=== PATIENT | male | born 1930 | race African-American/Black ===

== ENCOUNTER 2016-07-28 08:20 | Emergency (ER) | payer OTHER ==
[2016-07-28 09:02] VITALS: BMI 23.6
[2016-07-28 09:58] LABS: PH,URINE 6.5 (5.0-8.0); URINE APPEARANCE CLEAR; URINE BILIRUBIN 2+ (NEGATIVE); URINE COLOR DK. RED; URINE GLUCOSE (UA) NEGATIVE (NEGATIVE); URINE KETONE TRACE (NEGATIVE); URINE UROBILINOGEN 2.0 E.U/dl E.U./dl (0.2-1.0)
[2016-07-28 10:02] LABS: BASOPHIL 0.9 % (0-2.0); EOSINOPHIL 0.6 % (0-4.5); MCH 26.8 pg (25.7-33.7); MCHC 32.4 g/dl (32.0-35.9); MEAN CELL VOLUME 82.6 fl (80-96); MEAN PLT VOLUME 8.7 fl (7.5-11.1); NEUTROPHILS 63.4 % (42.8-82.8); PLATELET COUNT 204 K/MM3 (134-434); RDW 18.4 % (11.9-15.9); WHITE BLOOD COUNT 6.1 K/mm3 (4.0-10.0)
--- NOTE | 2016-07-28 10:07 | PDOC ---
History of Present Illness - General Chief Complaint: Penile Drainage Stated Complaint: FALL/BLEEDING FROM PENIS Time Seen by Provider: 07/28/16 09:05 - History of Present Illness Initial Comments: 07/28/16 09:58 CHIEF COMPLAINT: fall/hematuria HISTORY OF PRESENT ILLNESS: 86 yo M with hx of dementia, HTN, NIDDM, CAD, [place], CVA 2, BPH, prostate cancer (undergoing treatment with urologist MD Oliveira) presents to ED with hematuria. Patient is poor historian, but daughter is at bedside. Daughter states that patient lives alone and she was unable to reach him last night when she called him to tell him that the lab was coming to tests this morning. She states he "normally goes to bed early so I thought maybe he went to bed, but when I called him this morning I couldn't reach him. I went to go see what was going on and when I got his apartment he was lying on the floor, and everything was in disarray. I think he might have fallen but he will never admit to falling." Daughter also reports that he had "a procedure done a couple months ago and ever since then he has had some bleeding in his urine sometimes." Patient has no complaints of pain at this time. No recent travel or sick contacts. PAST MEDICAL HISTORY: as per HPI FAMILY HISTORY: Denies SOCIAL HISTORY: Lives at home alone. Denies tobacco, alcohol, illicit drug use. SURGICAL HISTORY: hip replacement ALLERGIES: No known drug allergies REVIEW OF SYSTEMS - patient denies any pain at this time, otherwise unreliable history PHYSICAL EXAM General Appearance: Well-appearing, appropriately dressed. No apparent distress , no intoxication. HEENT: EOMI, PERRLA, normal ENT inspection, normal voice, TMs normal, pharynx normal. No conjunctival pallor. No photophobia, scleral icterus. Neck: Supple. Trachea midline. No tenderness, rigidity, carotid bruit, stridor , lymphadenopathy, or thyromegaly. Respiratory/Chest: Lungs CTAB. No shortness of breath, chest tenderness, respiratory distress, accessory muscle use. No crackles, rales, rhonchi, stridor , wheezing, dullness Cardiovascular: RRR. S1, S2. No JVD, murmur, bradycardia, tachycardia. Vascular Pulses: Dorsalis-Pedis (R): 2+, Dorsalis-Pedis (L): 2+ Gastrointestinal/Abdominal: Normal bowel sounds. Abdomen soft, non-distended. No tenderness or rebound tenderness. No organomegaly, pulsatile mass, guarding , hernia, hepatomegaly, splenomegaly. Genitourinary: Jamey red blood to urine. Lymphatic: No adenopathy, tenderness. Musculoskeletal/Extremities: Normal inspection. FROM of all extremities, normal capillary refill. Pelvis Stable. No CVA tenderness. No tenderness to extremities, pedal edema, swelling, erythema or deformity. Integumentary: Appropriate color, dry, warm. No cyanosis, erythema, jaundice or rash Neurologic: jitney driver II-XII intact. Fully oriented, alert. Appropriate mood/affect. Motor strength 5/5. No appreciable EOM palsy, facial droop or sensory deficit. Past History - Past Medical History Allergies/Adverse Reactions: Allergies Allergy/AdvReac Type Severity Reaction Status Date / Time No Known Drug Allergies Allergy Verified 07/28/16 08:57 Home Medications: Ambulatory Orders Aspirin [ASA -] 81 mg PO DAILY 07/28/16 Atorvastatin Ca [Lipitor] 40 mg PO HS 07/28/16 Carvedilol [Coreg -] 25 mg PO BID 07/28/16 Cholecalciferol (Vitamin D3) [Vitamin D3 -] 1,000 units PO DAILY 07/28/16 Ciprofloxacin HCl [Cipro] 500 mg PO BID #10 tablet 07/28/16 Dabigatran Etexilate Mesylate [Pradaxa -] 150 mg PO BID 07/28/16 Donepezil HCl 5 mg PO DAILY 07/28/16 Ferrous Sulfate 325 mg PO DAILY 07/28/16 Furosemide 20 mg PO DAILY 07/28/16 Nitroglycerin 0.4 mg SL ASDIR 07/28/16 Sitagliptin Phos/Metformin HCl [Janumet 50-1,000 mg Tablet] 1 each PO BID Anemia: No Asthma: No Cancer: Yes (PROSTATE CA) Cardiac Disorders: Yes ([place] 2014, CAD,A.FIB) CVA: Yes (STROKE X 2- 2006, 2012) COPD: No CHF: No Dementia: Yes Diabetes: Yes (NIDDM) GI Disorders: No Disorders: No HTN: Yes Hypercholesterolemia: No Liver Disease: No Seizures: No Thyroid Disease: No - Surgical History Orthopedic Surgery: Yes (HIP REPLACEMENT) - Psycho/Social/Smoking Cessation Hx Anxiety: No Suicidal Ideation: No Smoking History: Never smoked Have you smoked in the past 12 months: No Number of Cigarettes Smoked Daily: 0 Information on smoking cessation initiated: No Hx Alcohol Use: No Drug/Substance Use Hx: No Substance Use Type: None Hx Substance Use Treatment: No *Physical Exam - Vital Signs Last Vital Signs Temp Pulse Resp BP Pulse Ox 95.6 F L 74 18 109/90 100 07/28/16 08:57 07/28/16 08:57 07/28/16 08:57 07/28/16 08:57 07/28/16 08:57 ED Treatment Course - LABORATORY CBC & Chemistry Diagram: 07/28/16 09:50 07/28/16 09:50 Medical Decision Making - Medical Decision Making 07/28/16 11:07 86 yo M with hx of dementia, HTN, NIDDM, CAD, [place], CVA 2, BPH, prostate cancer (undergoing treatment with urologist MD Oliveira) presents to ED with hematuria. -CBC, CMP -UA, UCx (larsen catheter placed) -Head CT Head CT negative for acute pathology. Labs: UA positive for 865 WBC. Discussed case with covering urologist MD Emmett Oliveira. Per Dr. Oliveira, will order renal/pelvic US and discharge with close outpatient follow up with Dr. Sarah on Sunday. Will rx cipro for UTI. Pelvic/Renal US results: R renal cyst, no evidence of stones or hydronephrosis. discussed with radiologist MD Williamson. 07/28/16 14:26 *DC/Admit/Observation/Transfer Diagnosis at time of Disposition: Hematuria due to cystitis, Chronic UTI - Discharge Dispostion Disposition: HOME Condition at time of disposition: Stable Admit: No - Prescriptions Prescriptions: Ciprofloxacin HCl [Cipro] 500 mg PO BID #10 tablet - Referrals Referrals: Jered Poole [Primary Care Provider] - Aaliyah Sarah MD [Staff Physician] - - Patient Instructions Printed Discharge Instructions: DI for Hematuria, DI for Urinary Tract Infection (UTI) Additional Instructions: Please take medication as prescribed and complete the entire course of antibiotics. As discussed, you MUST follow up with Dr. Sarah on Sunday, anytime after 9 am. If you experience fever, nausea, vomiting, diarrhea, change in mental status, chest pain, shortness of breath, or any new or worsening symptoms, please return to the ER.
[2016-07-28 10:08] LABS: URINE BLOOD 3+ (NEGATIVE); URINE LEUK ESTERASE 2+ (NEGATIVE); URINE NITRITE POSITIVE (NEGATIVE); URINE PROTEIN 3+ (NEGATIVE)
[2016-07-28 10:10] LABS: URINE RBC 3435 /hpf (0-3); URINE WBC 865 /hpf (3-5); YEAST MANY
[2016-07-28 10:18] LABS: INR 2.3 (0.82-1.09); PROTHROMBIN TIME (PATIENT) 25.7 SEC (9.98-11.88)
[2016-07-28 10:56] LABS: ALBUMIN 2.1 g/dl (3.4-5.0); ANION GAP 11 (8-16); CALCIUM 8.6 mg/dL (8.5-10.1); CO2 26 mmol/L (21-32); COCKROFT - GAULT 76.31; CREATININE 0.7 mg/dL (0.7-1.3); GLUCOSE,RANDOM 99 mg/dL (74-106); SGPT/ALT 25 U/L (12-78)
[2016-07-28 10:58] LABS: ALK PHOS 86 U/L (45-117); BILIRUBIN,TOTAL 0.6 mg/dL (0.2-1.0); TOT PROT 7.2 g/dl (6.4-8.2)
[2016-07-28 10:59] LABS: SGOT/AST 48 U/L (15-37)
[2016-07-28] MEDS ORDERED: LEVOFLOXACIN 750 MG IVPB 150 ML IVPB ONE ×2 (11:05→11:26)
[2016-07-28 15:25] VITALS: BP 118/78; PULSE 76; TEMP 98
--- NOTE | 2016-07-29 18:36 | EKG ---
Test Reason : Blood Pressure : / mmHG Vent. Rate : 073 BPM Atrial Rate : 292 BPM P-R Int : 000 ms QRS Dur : 068 ms QT Int : 434 ms P-R-T Axes : 065 045 119 degrees QTc Int : 478 ms PROBABLE ATRIAL FLUTTER WITH 4:1 A-V CONDUCTION NONSPECIFIC ST AND T WAVE ABNORMALITY ABNORMAL ECG WHEN COMPARED WITH ECG OF 06-JAN-2010 22:04, VENT. RATE HAS DECREASED BY 37 BPM NONSPECIFIC T WAVE ABNORMALITY, WORSE IN LATERAL LEADS CLINICAL CORRELATION IS RECOMMENDED BASELINE ARTIFACT Confirmed by KARLA WATKINS, JALEEL ([id number]) on 07/29/2016 6:36:04 PM Referred By: Confirmed By:JALEEL ACOSTA MD
== END 2016-07-28 17:25 | disposition home or self-care (01) ==
LOC: JER 08:20
PROC: 3E0333Z Introduction of Anti-inflammatory into Peripheral Vein, Percutaneous Approach (ICD-10-PCS; principal; 2016-07-28)
PROC: 0T9B70Z Drainage of Bladder with Drainage Device, Via Natural or Artificial Opening (ICD-10-PCS; 2016-07-28)
DX: N30.21 Other chronic cystitis with hematuria (principal); I25.10 Atherosclerotic heart disease of native coronary artery without angina pectoris; I10 Essential (primary) hypertension; I25.2 Old myocardial infarction; I48.91 Unspecified atrial fibrillation; Z79.01 Long term (current) use of anticoagulants; E11.9 Type 2 diabetes mellitus without complications; Z79.84 Long term (current) use of oral hypoglycemic drugs; N40.0 Benign prostatic hyperplasia without lower urinary tract symptoms; C61 Malignant neoplasm of prostate; Z86.73 Personal history of transient ischemic attack (TIA), and cerebral infarction without residual deficits; F03.90 Unspecified dementia, unspecified severity, without behavioral disturbance, psychotic disturbance, mood disturbance, and anxiety
CPT/HCPCS: 36415; 51702; 70450-TC; 76775-TC; 76856-TC; 80053; 81003; 81015; 85025; 85610; 87086; 87186; 93005; 93010; 96365; 99283-25

== ENCOUNTER 2016-11-19 08:33 | Observation (INO) | payer OTHER ==
[2016-11-19 09:03] VITALS: BMI 22.1
--- NOTE | 2016-11-19 09:41 | PDOC ---
History of Present Illness - General Chief Complaint: Weakness Stated Complaint: WEAKNESS/DEHYDRATION Time Seen by Provider: 11/19/16 09:36 History Source: Patient Exam Limitations: Clinical Condition, Dementia - History of Present Illness Initial Comments: 11/19/16 12:54 86M with h/o dementia, HTN, NIDDM, CAD, [place], CVAx2 and prostate cancer, present to the ED after a syncopal episode. 3 days ago the patient collapsed trying to get up on his feet but was too weak. That fall was unwitnessed but without any apparent wounds. today after drinking some water, he was witnessed by his son rolling his eyes back and tilting his head back for 30 sec, regaining consciousness for 15min then another 10sec syncopal episode witnessed by firefighters who were called. The patient was then brought here by ems. 11/19/16 14:16 11/19/16 14:57 Past History - Past Medical History Allergies/Adverse Reactions: Allergies Allergy/AdvReac Type Severity Reaction Status Date / Time No Known Drug Allergies Allergy Verified 11/19/16 08:59 Home Medications: Ambulatory Orders Aspirin [ASA -] 81 mg PO DAILY 07/28/16 Atorvastatin Ca [Lipitor] 40 mg PO HS 07/28/16 Carvedilol [Coreg -] 25 mg PO BID 07/28/16 Cholecalciferol (Vitamin D3) [Vitamin D3 -] 1,000 units PO DAILY 07/28/16 Dabigatran Etexilate Mesylate [Pradaxa -] 150 mg PO BID 07/28/16 Donepezil HCl 5 mg PO DAILY 07/28/16 Ferrous Sulfate 325 mg PO BID 07/28/16 Furosemide 20 mg PO DAILY 07/28/16 Nitroglycerin 0.4 mg SL ASDIR 07/28/16 Sitagliptin Phos/Metformin HCl [Janumet 50-1,000 mg Tablet] 1 each PO BID Bicalutamide [Casodex] 50 mg PO DAILY 11/19/16 Docusate Sodium 300 mg PO HS 11/19/16 Gabapentin 100 mg PO HS 11/19/16 Ipratropium/Albuterol Sulfate [Iprat-Albut 0.5-3(2.5) mg/3 ml] 3 ml IH PRN PRN 11/19/16 Sitagliptin Phos/Metformin HCl [Janumet 50-500 mg Tablet] 1 each PO DAILY Anemia: No Asthma: No Cancer: Yes (PROSTATE CA) Cardiac Disorders: Yes ([place] 2013, CAD,A.FIB) CVA: Yes (STROKE X 2- 2006, 2012) COPD: No CHF: No Dementia: Yes Diabetes: Yes (NIDDM) GI Disorders: No Disorders: No HTN: Yes Hypercholesterolemia: No Liver Disease: No Seizures: No Thyroid Disease: No - Surgical History Orthopedic Surgery: Yes (HIP REPLACEMENT) - Psycho/Social/Smoking Cessation Hx Anxiety: No Suicidal Ideation: No Smoking History: Never smoked Have you smoked in the past 12 months: No Number of Cigarettes Smoked Daily: 0 Information on smoking cessation initiated: No Hx Alcohol Use: No Drug/Substance Use Hx: No Substance Use Type: None Hx Substance Use Treatment: No Review of Systems - Review of Systems Able to Perform ROS?: No (Dementia) *Physical Exam - Vital Signs Last Vital Signs Temp Pulse Resp BP Pulse Ox 98.8 F 50 L 18 148/63 99 11/19/16 09:32 11/19/16 08:35 11/19/16 08:35 11/19/16 08:35 11/19/16 08:35 - Physical Exam General Appearance: Yes: Nourished, Appropriately Dressed HEENT: positive: EOMI (arcus senilis), YENI Respiratory/Chest: positive: Lungs Clear, Normal Breath Sounds. negative: Chest Tender, Respiratory Distress Cardiovascular: positive: Bradycardia, Irregular Gastrointestinal/Abdominal: positive: Normal Bowel Sounds, Soft. negative: Tender Neurologic: positive: Normal Mood/Affect, Depressed Affect Heart Score/ECG Review - Age Age: >/= 65 - Risk Factors Risk Factors Heart Score: Yes Hx Hypercholesterolemia, Yes Hx Hypertension, Yes Hx Diabetes, Yes Positive family hx of cardiac disease ED Treatment Course - LABORATORY CBC & Chemistry Diagram: 11/19/16 10:00 11/19/16 10:00 Medical Decision Making - Medical Decision Making 11/19/16 14:31 86M with h/o dementia, HTN, NIDDM, CAD, [place], CVAx2 and prostate cancer comes to ED for evaluation of syncope. r/o cva, [place] CBC CMP negtive cardiac enzymes neg waiting for second set CT head negative. 11/19/16 17:37 UTI present. From previous Urine Culture, possible proteus mirabilis susceptible to Meropenem 11/19/16 17:[address] Rebollar[facility] [employer] who accepted the patient to telemetry *DC/Admit/Observation/Transfer Diagnosis at time of Disposition: UTI (urinary tract infection) - Discharge Dispostion Condition at time of disposition: Stable Admit: Yes - Referrals Referrals: Danuta Price MD [Staff Physician] - Jas Juares MD [Staff Physician] -
[2016-11-19 10:33] LABS: BASOPHIL 0.6 % (0-2.0); EOSINOPHIL 1.8 % (0-4.5); MCH 27.5 pg (25.7-33.7); MEAN PLT VOLUME 8.4 fl (7.5-11.1); NEUTROPHILS 72.2 % (42.8-82.8); PLATELET COUNT 179 K/MM3 (134-434); RDW 18.4 % (11.9-15.9); WHITE BLOOD COUNT 6.8 K/mm3 (4.0-10.0)
[2016-11-19 11:31] LABS: ALBUMIN 1.8 g/dl (3.4-5.0); ANION GAP 7 (8-16); BILIRUBIN,TOTAL 0.4 mg/dL (0.2-1.0); CALCIUM 7.9 mg/dL (8.5-10.1); CO2 25 mmol/L (21-32); CREATININE 0.8 mg/dL (0.7-1.3); GLUCOSE,RANDOM 126 mg/dL (74-106); SGOT/AST 22 U/L (15-37); SGPT/ALT 10 U/L (12-78); TOT PROT 6.6 g/dl (6.4-8.2)
[2016-11-19 11:33] LABS: ALK PHOS 89 U/L (45-117); CPK 32 IU/L (39-308); TROPONIN I 0.04 ng/ml (0.00-0.05)
[2016-11-19 15:05] LABS: URINE APPEARANCE CLEAR; URINE BILIRUBIN NEGATIVE (NEGATIVE); URINE BLOOD 3+ (NEGATIVE); URINE COLOR BROWN; URINE GLUCOSE (UA) NEGATIVE (NEGATIVE); URINE KETONE NEGATIVE (NEGATIVE)
[2016-11-19 15:06] LABS: URINE LEUK ESTERASE 2+ (NEGATIVE); URINE NITRITE POSITIVE (NEGATIVE); URINE PROTEIN 2+ (NEGATIVE)
[2016-11-19 15:09] LABS: URINE RBC 3982 /hpf (0-3); URINE WBC 918 /hpf (3-5); YEAST MANY
--- NOTE | 2016-11-19 15:19 | PDOC ---
Attending Attestation - Resident Resident Name: Malachi Ross - ED Attending Attestation I have performed the following: I have examined & evaluated the patient, The case was reviewed & discussed with the resident, I agree w/resident's findings & plan, Exceptions are as noted - HPI HPI: 11/19/16 16:23 2 syncopal events this morning, prior to arrival.... - Physicial Exam PE: 11/19/16 16:23 Awake, Alert, Cooperative, Benign - Medical Decision Making 11/19/16 16:24 Uti, Syncope 11/19/16 16:24 Will Admit to telemetry-
[2016-11-19] MEDS ORDERED: MEROPENEM 1 MG in DEXTROSE 5%-WATER - 100 ML IVPB ONE (16:02)
[2016-11-19] MEDS ORDERED: ACETAMINOPHEN 325 MG TABLET (FP) PO PRN (19:04)
[2016-11-19] MEDS ORDERED: PIPERACILLIN/TAZOB 3.375 GM/50 ML PRE-DOCKED IVPB ONE (19:45)
--- NOTE | 2016-11-19 19:55 | HP ---
Admitting History and Physical - Primary Care Physician PCP: Dereje Rodriguez - Admission Chief Complaint: syncope x 2 History of Present Illness: 86M with h/o dementia, HTN, NIDDM, CAD, [place], CVAx2 and prostate cancer, present to the ED after a syncopal episode. 3 days ago the patient collapsed trying to get up on his feet but was too weak. That fall was unwitnessed but without any apparent wounds. He was brought in to [facility] ER aftera witnessed fall by his son, while patient was drinking water. His eyes rolled back, tilting his head coming back to his baseline after 15 mins or so and then another syncopal episode for 10 seconds which was also witness by firefighters who initiated EMS. At the moment, patient was seen in the ED holding area, comfortable in bed, NAD , unable to remember any of the events asking to go home. History Source: Medical Record Limitations to Obtaining History: Dementia - Past Medical History SURGICAL ORDERLY: Yes: CVA (2006,12/2009), Dementia Cardiovascular: Yes: AFIB (aflutter), CAD, HTN, Hyperlipdemia, [place] (NSTEMI with left ventricular dysfunction-2014) Renal/: Yes: BPH, Cancer (Prostate Ca), Other (cystoscopy-2016,bladder stones- 2016,) Heme/Onc: Yes: Anemia, B12 Deficiency Musculoskeletal: Yes: Other (left hip fx) Additional Past Medical History: Glaucoma Left cataract extraction - Smoking History Smoking history: Never smoked Have you smoked in the past 12 months: No Aproximately how many cigarettes per day: 0 - Alcohol/Substance Use Hx Alcohol Use: No Home Medications - Allergies Allergies/Adverse Reactions: Allergies Allergy/AdvReac Type Severity Reaction Status Date / Time No Known Drug Allergies Allergy Verified 11/19/16 08:59 - Home Medications Home Medications: Ambulatory Orders Aspirin [ASA -] 81 mg PO DAILY 07/28/16 Atorvastatin Ca [Lipitor] 40 mg PO HS 07/28/16 Carvedilol [Coreg -] 25 mg PO BID 07/28/16 Cholecalciferol (Vitamin D3) [Vitamin D3 -] 1,000 units PO DAILY 07/28/16 Dabigatran Etexilate Mesylate [Pradaxa -] 150 mg PO BID 07/28/16 Donepezil HCl 5 mg PO DAILY 07/28/16 Ferrous Sulfate 325 mg PO BID 07/28/16 Furosemide 20 mg PO DAILY 07/28/16 Nitroglycerin 0.4 mg SL ASDIR 07/28/16 Sitagliptin Phos/Metformin HCl [Janumet 50-1,000 mg Tablet] 1 each PO BID Bicalutamide [Casodex] 50 mg PO DAILY 11/19/16 Docusate Sodium 300 mg PO HS 11/19/16 Gabapentin 100 mg PO HS 11/19/16 Ipratropium/Albuterol Sulfate [Iprat-Albut 0.5-3(2.5) mg/3 ml] 3 ml IH PRN PRN 11/19/16 Sitagliptin Phos/Metformin HCl [Janumet 50-500 mg Tablet] 1 each PO DAILY Family Disease History - Family Disease History Family Disease History: Other: Father (CVA), Mother (CVA), Brother (CVA), Son ( HEALTHY), Daughter (X 2- HEALTHY) Review of Systems - Review of Systems Constitutional: reports: No Symptoms Eyes: reports: No Symptoms HENT: reports: No Symptoms Neck: reports: No Symptoms Cardiovascular: reports: No Symptoms Respiratory: reports: No Symptoms Gastrointestinal: reports: No Symptoms Genitourinary: reports: No Symptoms Breasts: reports: No Symptoms Reported Musculoskeletal: reports: No Symptoms Integumentary: reports: No Symptoms Neurological: reports: No Symptoms Endocrine: reports: No Symptoms Hematology/Lymphatic: reports: No Symptoms Psychiatric: reports: No Symptoms Physical Examination Vital Signs: Vital Signs Temperature 98.2 F 11/19/16 18:27 Pulse Rate 56 L 11/19/16 18:27 Respiratory Rate 16 11/19/16 18:27 Blood Pressure 147/76 11/19/16 18:27 O2 Sat by Pulse Oximetry (%) 97 11/19/16 18:27 Constitutional: Yes: Well Nourished, No Distress, Calm Cardiovascular: Yes: Pulse Irregular, Murmur (LSB systolic grade II murmur) Respiratory: Yes: Regular Gastrointestinal: Yes: Normal Bowel Sounds Musculoskeletal: Yes: WNL Extremities: Yes: WNL Edema: No Peripheral Pulses WNL: Yes Neurological: Yes: Alert, Pre-Existing Deficit Psychiatric: Yes: Alert Imaging - Results Cat Scan: Report Reviewed (CT head negative) Problem List - Problems (1) UTI (urinary tract infection) Code(s): N39.0 - URINARY TRACT INFECTION, SITE NOT SPECIFIED (2) Syncopal episodes Code(s): R55 - SYNCOPE AND COLLAPSE (3) HTN (hypertension) Code(s): I10 - ESSENTIAL (PRIMARY) HYPERTENSION (4) Afib Code(s): I48.91 - UNSPECIFIED ATRIAL FIBRILLATION Qualifiers: Atrial fibrillation type: chronic Qualified Code(s): I48.2 - Chronic atrial fibrillation (5) Fall Assessment/Plan: -safety precautions Code(s): W19.XXXA - UNSPECIFIED FALL, INITIAL ENCOUNTER (6) Anemia Code(s): D64.9 - ANEMIA, UNSPECIFIED Qualifiers: Anemia type: iron deficiency Assessment/Plan UTI -UA postive for nitrites -merpenem given in the ER -zosyn Q8H -ID consult -UC pending afib-chronic -continue pradaxa -Cardiology consult Fall -he has fallen multiple times in the past -neurology consult -CT head negative -MRI without contrast -safety precaution Syncope -Echo -Carotid U/S -telemetry -Neurology and cardiology consult Anemia -on ferrous sulfate -iron profile -stool guaiac -monitor h/h HTN -controlled at this time
[2016-11-19] MEDS ORDERED: GABAPENTIN 100 MG CAPSULE (FP) ONE (21:51)
[2016-11-19] MEDS ORDERED: DOCUSATE SODIUM 100 MG CAPSULE (FP) PO ONE (21:55)
[2016-11-19] MEDS ORDERED: CARVEDILOL 12.5 MG TABLET (FP) ONE (21:56)
[2016-11-19] MEDS ORDERED: PIPERACILLIN/TAZOB 3.375 GM 50 ML IVPB ONE (21:57)
[2016-11-19] MEDS ORDERED: FERROUS SO4 325 MG TABLET (FP) ONE (21:58)
[2016-11-19] MEDS ORDERED: ATORVASTATIN CA 40 MG TABLET (FP) ONE (21:58)
[2016-11-19] MEDS: DOCUSATE SODIUM 100 MG CAPSULE (FP) PO SCH (22:00)
[2016-11-19] MEDS: GABAPENTIN 100 MG CAPSULE (FP) PO SCH (22:00)
[2016-11-19] MEDS: CARVEDILOL 25 MG TABLET (FP) PO SCH (22:00)
[2016-11-19] MEDS: INSULIN SLIDING SCALE (NOVOLOG) 1 VIAL SQ SCH (22:00)
[2016-11-19] MEDS ORDERED: ALBUTEROL SO4 2.5/IPRATROPIUM 0.5 INH SOL 3 ML VIAL.NEB. NEB PRN (22:00)
[2016-11-19] MEDS: ATORVASTATIN CA 40 MG TABLET (FP) PO SCH (22:00)
[2016-11-19] MEDS: FERROUS SO4 325 MG TABLET (FP) PO SCH (22:00)
[2016-11-20] MEDS ORDERED: PIPERACILLIN/TAZOB 3.375 GM 50 ML IVPB ONE (03:09)
[2016-11-20] MEDS: DABIGATRAN ETEXILATE MESYLATE 150 MG CAPSULE PO SCH ×3 (03:11→23:35)
[2016-11-20] MEDS ORDERED: PIPERACILLIN/TAZOB 3.375 GM/50 ML PRE-DOCKED IVPB ONE (03:45)
[2016-11-20] MEDS ORDERED: PIPERACILLIN/TAZOB 3.375 GM/50 ML PRE-DOCKED IVPB SCH (06:00)
[2016-11-20] MEDS: INSULIN SLIDING SCALE (NOVOLOG) 1 VIAL SQ SCH ×4 (06:43→23:35)
[2016-11-20 06:57] LABS: BASOPHIL 0.8 % (0-2.0); EOSINOPHIL 6.3 % (0-4.5); MCH 28.5 pg (25.7-33.7); MCHC 33.4 g/dl (32.0-35.9); MEAN CELL VOLUME 85.5 fl (80-96); MEAN PLT VOLUME 8.7 fl (7.5-11.1); NEUTROPHILS 54.3 % (42.8-82.8); PLATELET COUNT 200 K/MM3 (134-434); RDW 17.6 % (11.9-15.9); WHITE BLOOD COUNT 5.4 K/mm3 (4.0-10.0)
[2016-11-20] MEDS ORDERED: FUROSEMIDE 40 MG TABLET (FP) ONE (06:58)
[2016-11-20] MEDS: FUROSEMIDE 20 MG TABLET (FP) PO SCH (07:00)
[2016-11-20 07:17] LABS: INR 1.5 (0.82-1.09); PROTHROMBIN TIME (PATIENT) 16.6 SEC (9.98-11.88)
[2016-11-20 07:21] LABS: ALBUMIN 1.7 g/dl (3.4-5.0); ANION GAP 4 (8-16); BILIRUBIN,TOTAL 0.4 mg/dL (0.2-1.0); CALCIUM 8.1 mg/dL (8.5-10.1); CO2 27 mmol/L (21-32); CREATININE 0.8 mg/dL (0.7-1.3); GLUCOSE,RANDOM 117 mg/dL (74-106); MAGNESIUM 1.9 mg/dL (1.8-2.4); SGOT/AST 22 U/L (15-37); SGPT/ALT 10 U/L (12-78); TOT PROT 6.7 g/dl (6.4-8.2)
[2016-11-20 07:24] LABS: ALK PHOS 84 U/L (45-117); TROPONIN I 0.04 ng/ml (0.00-0.05)
--- NOTE | 2016-11-20 08:37 | PN ---
Progress Note, Physician Chief Complaint: ID Full note dictated - Current Medication List Current Medications: Active Medications Acetaminophen (Tylenol -) 650 mg PO Q6H PRN PRN Reason: FEVER OR PAIN Albuterol/Ipratropium (Duoneb -) 1 amp NEB QIDR PRN PRN Reason: copd Aspirin (Asa -) 81 mg PO DAILY [facility] Atorvastatin Calcium (Lipitor -) 40 mg PO HS [facility] Last Admin: 11/19/16 22:00 Dose: 40 mg Bicalutamide (Casodex -) 50 mg PO DAILY [facility] Carvedilol (Coreg -) 25 mg PO BID [facility] Last Admin: 11/19/16 22:00 Dose: 25 mg Cholecalciferol (Vitamin D3 -) 1,000 unit PO DAILY [facility] Dabigatran (Pradaxa -) 150 mg PO BID [facility] Last Admin: 11/20/16 03:11 Dose: 150 mg Docusate Sodium (Colace -) 300 mg PO HS [facility] Last Admin: 11/19/16 22:00 Dose: 300 mg Donepezil HCl (Aricept -) 5 mg PO DAILY [facility] Ferrous Sulfate (Feosol -) 325 mg PO BID [facility] Last Admin: 11/19/16 22:00 Dose: 325 mg Furosemide (Lasix -) 20 mg PO DAILY@0600 [facility] Last Admin: 11/20/16 07:00 Dose: 20 mg Gabapentin (Neurontin -) 100 mg PO HS [facility] Last Admin: 11/19/16 22:00 Dose: 100 mg Insulin Aspart (Novolog Vial Sliding Scale -) 1 vial SQ ACHS [facility] PRN Reason: Protocol Last Admin: 11/20/16 06:43 Dose: Not Given Piperacillin Sod/Tazobactam Sod (Zosyn 3.375gm Ivpb (Pre-Docked)) 3.375 gm IVPB Q8H-IV JADEN PRN Reason: Protocol Pneumococcal 13-Valent Conj Vacc (Prevnar 13 Syringe -) 0.5 ml IM .ONCE ONE Stop: 11/20/16 10:01 - Objective Vital Signs: Vital Signs Temperature 97.9 F 11/20/16 02:00 Pulse Rate 66 11/20/16 06:00 Respiratory Rate 16 11/20/16 06:00 Blood Pressure 145/70 11/20/16 06:00 O2 Sat by Pulse Oximetry (%) 97 11/20/16 06:00 Labs: CBC, BMP 11/20/16 06:13 11/20/16 06:13 INR, PTT INR 1.50 (0.82-1.09) H D 11/20/16 06:13 Problem List - Problems (1) Syncopal episodes Code(s): R55 - SYNCOPE AND COLLAPSE (2) Chronic UTI Code(s): N39.0 - URINARY TRACT INFECTION, SITE NOT SPECIFIED Assessment/Plan Microbiology 07/28/16 09:49 Urine - Urine Clean Catch Urine Culture - Final Klebsiella Pneumoniae - Esbl Laboratory Tests 11/19/16 11/20/16 11/20/16 14:50 06:13 06:13 WBC 5.4 Hgb 10.0 L Hct 29.9 L Plt Count 200 BUN 14 Creatinine 0.8 Ur Leukocyte Esterase 2+ H Urine RBC 3982 Urine WBC 918 Urine Yeast Many Assesment Chronic recurrent UTI History of ESBL Plan As no fever normal WBC would not treat with any antibiotics Cecilia WATKINS
[2016-11-20] MEDS: FERROUS SO4 325 MG TABLET (FP) PO SCH ×2 (09:53→23:35)
[2016-11-20] MEDS: CARVEDILOL 25 MG TABLET (FP) PO SCH ×2 (09:53→23:35)
[2016-11-20] MEDS: ASPIRIN 81 MG CHEWABLE TABLETS PO SCH (09:54)
[2016-11-20] MEDS: DONEPEZIL HCL 5 MG TABLET (FP) PO SCH (09:54)
[2016-11-20] MEDS: BICALUTAMIDE 50 MG TABLET (FP) PO SCH (09:54)
[2016-11-20] MEDS: CHOLECALCIFEROL (VITAMIN D3) 1,000 UNIT TABLET (FP) PO SCH (09:54)
--- NOTE | 2016-11-20 13:39 | EKG ---
Test Reason : Blood Pressure : / mmHG Vent. Rate : 063 BPM Atrial Rate : 300 BPM P-R Int : 000 ms QRS Dur : 072 ms QT Int : 422 ms P-R-T Axes : 089 043 127 degrees QTc Int : 431 ms ATRIAL FLUTTER WITH VARIABLE A-V BLOCK VS. ATRIAL FIBRILLATION LOW VOLTAGE QRS NONSPECIFIC T WAVE ABNORMALITY ABNORMAL ECG WHEN COMPARED WITH ECG OF 28-JUL-2016 08:58, VENT. RATE HAS DECREASED Confirmed by DEMARCUS SARAVIA MD ([id number]) on 11/20/2016 1:39:04 PM Referred By: Confirmed By:DEMARCUS SARAVIA MD
--- NOTE | 2016-11-20 16:15 | PN ---
Progress Note, Physician - Current Medication List Current Medications: Active Medications Acetaminophen (Tylenol -) 650 mg PO Q6H PRN PRN Reason: FEVER OR PAIN Albuterol/Ipratropium (Duoneb -) 1 amp NEB QIDR PRN PRN Reason: copd Aspirin (Asa -) 81 mg PO DAILY [facility] Last Admin: 11/20/16 09:54 Dose: 81 mg Atorvastatin Calcium (Lipitor -) 40 mg PO HS [facility] Last Admin: 11/19/16 22:00 Dose: 40 mg Bicalutamide (Casodex -) 50 mg PO DAILY [facility] Last Admin: 11/20/16 09:54 Dose: 50 mg Carvedilol (Coreg -) 25 mg PO BID [facility] Last Admin: 11/20/16 09:53 Dose: 25 mg Cholecalciferol (Vitamin D3 -) 1,000 unit PO DAILY [facility] Last Admin: 11/20/16 09:54 Dose: 1,000 unit Dabigatran (Pradaxa -) 150 mg PO BID [facility] Last Admin: 11/20/16 09:54 Dose: 150 mg Docusate Sodium (Colace -) 300 mg PO [facility] Last Admin: 11/19/16 22:00 Dose: 300 mg Donepezil HCl (Aricept -) 5 mg PO DAILY [facility] Last Admin: 11/20/16 09:54 Dose: 5 mg Ferrous Sulfate (Feosol -) 325 mg PO BID [facility] Last Admin: 11/20/16 09:53 Dose: 325 mg Furosemide (Lasix -) 20 mg PO DAILY@0600 [facility] Last Admin: 11/20/16 07:00 Dose: 20 mg Gabapentin (Neurontin -) 100 mg PO [facility] Last Admin: 11/19/16 22:00 Dose: 100 mg Insulin Aspart (Novolog Vial Sliding Scale -) 1 vial SQ ACHS [facility] PRN Reason: Protocol Last Admin: 11/20/16 12:59 Dose: Not Given Piperacillin Sod/Tazobactam Sod (Zosyn 3.375gm Ivpb (Pre-Docked)) 3.375 gm IVPB Q8H-IV JADEN PRN Reason: Protocol Pneumococcal 13-Valent Conj Vacc (Prevnar 13 Syringe -) 0.5 ml IM .ONCE ONE Stop: 11/20/16 10:01 - Objective Vital Signs: Vital Signs Temperature 97.5 F L 11/20/16 09:53 Pulse Rate 67 0807/17 09:53 Respiratory Rate 16 11/20/16 09:53 Blood Pressure 142/92 11/20/16 09:53 O2 Sat by Pulse Oximetry (%) 100 11/20/16 09:53 Labs: CBC, BMP 11/20/16 06:13 11/20/16 06:13 INR, PTT INR 1.50 (0.82-1.09) H D 11/20/16 06:13
--- NOTE | 2016-11-20 17:16 | CONS ---
DATE OF CONSULTATION: 11/20/16 This is an 86-year-old male whom I am asked to see for evaluation of urinary tract infection. The patient has a history of prostate cancer, hypertension, noninsulin dependent diabetes, coronary artery disease, stroke and prior OR. He was admitted to the emergency room after a syncopal episode at home with loss of consciousness for which EMS was called. I am asked to see him now for evaluation of possible urinary tract infection based on an abnormal urinalysis showing many white cells and red cells which he has had previously. The patient has dementia and thus denies any localizing complaints or understanding as to why he was admitted to begin with. He was at the time of my exam sitting up in bed eating his breakfast. PAST MEDICAL HISTORY: As noted above. MEDICATION: Aspirin, atorvastatin, carvedilol, Pradaxa, donepezil, iron, Lasix, nitroglycerin, sitagliptin, metformin, gabapentin. ALLERGIES: None known. SOCIAL HISTORY: Never smoked. No history of alcohol. Lives at home. FAMILY HISTORY: Unobtainable. REVIEW OF SYSTEMS: All systems reviewed and found to be negative. PHYSICAL EXAMINATION: Vital Signs: Temp 98.8, pulse 50, respirations 18, blood pressure 148/63. General: Alert and in no acute distress. Lungs: Clear to P and A. Heart: S1, S2, irregular rhythm, no murmur. Abdomen: Soft. Positive bowel sounds, nontender. Extremities: No clubbing, cyanosis or edema. White count is 6.8, hemoglobin 10, platelets of 170. INR 1.5, BUN 14, creatinine 0.8. Urinalysis with 2+ leukocyte esterase, 3900 red cells, 918 WBCs, many yeast. Blood and urine cultures pending. CT of the head shows no intracranial pathology. ASSESSMENT: An 86-year-old male with history of prostate cancer admitted with a syncopal episode. Abnormal urinalysis noted which appears not significantly changed from previous urinalysis. No clinical criteria for sepsis. Certainly no fever. White blood cells normal. Thus, abnormal urinalysis incidental in this case. He has a history of an hdevhrzp-qzfayton-fqwl-lactamase in the past. I am not inclined to treat this though, he already received 2 doses of meropenem in the emergency room. He will need contact isolation for resistant organism but for now no antibiotic treatment is recommended. LUCY LOYD M.D. BESS/[id number]
--- NOTE | 2016-11-20 18:14 | HP ---
Admitting History and Physical - Primary Care Physician PCP: Dereje Rodriguez - Admission Chief Complaint: SEPSIS/UTI History of Present Illness: 86M with h/o dementia, HTN, NIDDM, CAD, PR, CVAx2 and prostate cancer, present to the ED after a syncopal episode. 3 days ago the patient collapsed trying to get up on his feet but was too weak. That fall was unwitnessed but without any apparent wounds. today after drinking some water, he was witnessed by his son rolling his eyes back and tilting his head back for 30 sec, regaining consciousness for 15min then another 10sec syncopal episode witnessed by firefighters who were called. The patient was then brought here by ems. History Source: Medical Record Limitations to Obtaining History: Clinical Condition - Past Medical History [employer]: Yes: CVA (2006,12/2009), Dementia Cardiovascular: Yes: AFIB (afl), CAD, HTN, Hyperlipdemia, PR (NSTEMI with left ventricular dysfunction-2014) Renal/: Yes: BPH, Cancer (Prostate Ca), Other (cystoscopy-2015,bladder stones- 2015,) Heme/Onc: Yes: Anemia, B12 Deficiency Musculoskeletal: Yes: Other (left hip fx) Additional Past Medical History: Glaucoma Left cataract extraction - Smoking History Smoking history: Never smoked Have you smoked in the past 12 months: No Aproximately how many cigarettes per day: 0 - Alcohol/Substance Use Hx Alcohol Use: No Home Medications - Allergies Allergies/Adverse Reactions: Allergies Allergy/AdvReac Type Severity Reaction Status Date / Time No Known Drug Allergies Allergy Verified 11/19/16 08:59 - Home Medications Home Medications: Ambulatory Orders Aspirin [ASA -] 81 mg PO DAILY 07/28/16 Atorvastatin Ca [Lipitor] 40 mg PO HS 07/28/16 Carvedilol [Coreg -] 25 mg PO BID 07/28/16 Cholecalciferol (Vitamin D3) [Vitamin D3 -] 1,000 units PO DAILY 07/28/16 Dabigatran Etexilate Mesylate [Pradaxa -] 150 mg PO BID 07/28/16 Donepezil HCl 5 mg PO DAILY 07/28/16 Ferrous Sulfate 325 mg PO BID 07/28/16 Furosemide 20 mg PO DAILY 07/28/16 Nitroglycerin 0.4 mg SL ASDIR 07/28/16 Sitagliptin Phos/Metformin HCl [Janumet 50-1,000 mg Tablet] 1 each PO BID Bicalutamide [Casodex] 50 mg PO DAILY 11/19/16 Docusate Sodium 300 mg PO HS 11/19/16 Gabapentin 100 mg PO HS 11/19/16 Ipratropium/Albuterol Sulfate [Iprat-Albut 0.5-3(2.5) mg/3 ml] 3 ml IH PRN PRN 11/19/16 Sitagliptin Phos/Metformin HCl [Janumet 50-500 mg Tablet] 1 each PO DAILY Family Disease History - Family Disease History Family Disease History: Other: Father (CVA), Mother (CVA), Brother (CVA), Son ( HEALTHY), Daughter (X 2- HEALTHY) Review of Systems Findings/Remarks: IN BED , CHART AND EVENTS REVIEWED - Review of Systems Constitutional: reports: Loss of Appetite, Weakness Eyes: reports: No Symptoms HENT: reports: No Symptoms Neck: reports: No Symptoms Cardiovascular: reports: No Symptoms Respiratory: reports: No Symptoms Gastrointestinal: reports: No Symptoms Genitourinary: reports: Incontinence Musculoskeletal: reports: Muscle Weakness Integumentary: reports: No Symptoms Neurological: reports: Pre-Existing Deficit Endocrine: reports: No Symptoms Hematology/Lymphatic: reports: No Symptoms Psychiatric: reports: Other Physical Examination Vital Signs: Vital Signs Temperature 97.8 F 11/20/16 17:12 Pulse Rate 81 11/20/16 17:12 Respiratory Rate 16 11/20/16 17:12 Blood Pressure 140/87 11/20/16 17:12 O2 Sat by Pulse Oximetry (%) 100 11/20/16 17:12 Constitutional: Yes: Mild Distress Eyes: Yes: WNL HENT: Yes: WNL Neck: Yes: WNL Cardiovascular: Yes: Pulse Irregular Respiratory: Yes: WNL Gastrointestinal: Yes: WNL Renal/: Yes: Incontinence Musculoskeletal: Yes: Muscle Weakness Edema: No Peripheral Pulses WNL: Yes Integumentary: Yes: WNL Wound/Incision: Yes: Clean/Dry Neurological: Yes: Pre-Existing Deficit ...Motor Strength: LLE, RLE Psychiatric: Yes: Other Labs: CBC, BMP 11/20/16 06:13 11/20/16 06:13 Problem List - Problems (1) Afib Code(s): I48.91 - UNSPECIFIED ATRIAL FIBRILLATION Qualifiers: Atrial fibrillation type: chronic Qualified Code(s): I48.2 - Chronic atrial fibrillation (2) Anemia Code(s): D64.9 - ANEMIA, UNSPECIFIED Qualifiers: Anemia type: iron deficiency (3) Fall Code(s): W19.XXXA - UNSPECIFIED FALL, INITIAL ENCOUNTER (4) HTN (hypertension) Code(s): I10 - ESSENTIAL (PRIMARY) HYPERTENSION (5) Syncopal episodes Code(s): R55 - SYNCOPE AND COLLAPSE (6) UTI (urinary tract infection) Code(s): N39.0 - URINARY TRACT INFECTION, SITE NOT SPECIFIED Assessment/Plan IV ABX PER ID ON HOLD AT THIS TIME CHECK CX OBSERVATION STATUS MEDS RESTARTED PT EVAL
[2016-11-20] MEDS: DOCUSATE SODIUM 100 MG CAPSULE (FP) PO SCH (23:34)
[2016-11-20] MEDS: GABAPENTIN 100 MG CAPSULE (FP) PO SCH (23:34)
[2016-11-20] MEDS: ATORVASTATIN CA 40 MG TABLET (FP) PO SCH (23:35)
[2016-11-21 06:07] LABS: SERUM IRON 27 ug/dL (38-169); TOTAL IRON BINDING CAPACITY 135 ug/dL (250-450); UIBC 108 ug/dL (111-343)
[2016-11-21] MEDS: FUROSEMIDE 20 MG TABLET (FP) PO SCH (06:09)
[2016-11-21] MEDS: INSULIN SLIDING SCALE (NOVOLOG) 1 VIAL SQ SCH ×4 (06:12→21:34)
[2016-11-21 07:12] LABS: MCH 27.4 pg (25.7-33.7); MEAN CELL VOLUME 85.7 fl (80-96); MEAN PLT VOLUME 8.8 fl (7.5-11.1); PLATELET COUNT 184 K/MM3 (134-434); RDW 17.1 % (11.9-15.9); WHITE BLOOD COUNT 5.7 K/mm3 (4.0-10.0)
[2016-11-21 07:49] LABS: ALBUMIN 1.7 g/dl (3.4-5.0); ANION GAP 7 (8-16); CHOLESTEROL 93 mg/dL (50-200); CO2 26 mmol/L (21-32); CREATININE 0.6 mg/dL (0.7-1.3); GLUCOSE,RANDOM 89 mg/dL (74-106); SGOT/AST 22 U/L (15-37); SGPT/ALT 8 U/L (12-78)
[2016-11-21 07:51] LABS: ALK PHOS 79 U/L (45-117); BILIRUBIN,TOTAL 0.5 mg/dL (0.2-1.0); LDL CHOLESTEROL (ONLY SJRH) 56 mg/dL (5-100); TOT PROT 6.4 g/dl (6.4-8.2)
[2016-11-21] MEDS: CHOLECALCIFEROL (VITAMIN D3) 1,000 UNIT TABLET (FP) PO SCH (09:24)
[2016-11-21] MEDS: DABIGATRAN ETEXILATE MESYLATE 150 MG CAPSULE PO SCH ×2 (09:25→21:34)
[2016-11-21] MEDS: ASPIRIN 81 MG CHEWABLE TABLETS PO SCH (09:25)
[2016-11-21] MEDS: FERROUS SO4 325 MG TABLET (FP) PO SCH ×2 (09:25→21:34)
[2016-11-21] MEDS: CARVEDILOL 25 MG TABLET (FP) PO SCH ×2 (09:25→21:34)
[2016-11-21] MEDS: DONEPEZIL HCL 5 MG TABLET (FP) PO SCH (09:25)
[2016-11-21] MEDS: BICALUTAMIDE 50 MG TABLET (FP) PO SCH (09:32)
[2016-11-21] MEDS ORDERED: PNEUMOC 13-VAL CONJ-DIP CRM/PF 0.5 ML DISP.SYRIN IM ONE ×2 (10:00→12:15)
--- NOTE | 2016-11-21 10:57 | PN ---
Progress Note (short form) - Note Progress Note: Chief Complaint: Seen and examined, notes were reviewed. Patient denies any chest discomfort or dyspnea, atrial Flutter Persists History of Present Illness: Seen and examined on Telemetry. Full consult dictated Trans-thoracic echocardiography dated 11/20/16 Revealed moderate degree of LV Systolic dysfunction with pulmonary HTN (RVSP between 50-60 Millimeters mercury) , moderate MR and mild to moderate TR Medications: Current Medications Acetaminophen (Tylenol -) 650 mg PO Q6H PRN PRN Reason: FEVER OR PAIN Albuterol/Ipratropium (Duoneb -) 1 amp NEB QIDR PRN PRN Reason: copd Atorvastatin Calcium (Lipitor -) 40 mg PO HS [facility] Last Admin: 11/20/16 23:35 Dose: 40 mg Bicalutamide (Casodex -) 50 mg PO DAILY [facility] Last Admin: 11/21/16 09:32 Dose: 50 mg Carvedilol (Coreg -) 25 mg PO BID [facility] Last Admin: 11/21/16 09:25 Dose: 25 mg Cholecalciferol (Vitamin D3 -) 1,000 unit PO DAILY [facility] Last Admin: 11/21/16 09:24 Dose: 1,000 unit Dabigatran (Pradaxa -) 150 mg PO BID [facility] Last Admin: 11/21/16 09:25 Dose: 150 mg Docusate Sodium (Colace -) 300 mg PO HS [facility] Last Admin: 11/20/16 23:34 Dose: 300 mg Donepezil HCl (Aricept -) 5 mg PO DAILY [facility] Last Admin: 11/21/16 09:25 Dose: 5 mg Ferrous Sulfate (Feosol -) 325 mg PO BID [facility] Last Admin: 11/21/16 09:25 Dose: 325 mg Furosemide (Lasix -) 20 mg PO DAILY@0600 [facility] Last Admin: 11/21/16 06:09 Dose: 20 mg Gabapentin (Neurontin -) 100 mg PO HS [facility] Last Admin: 11/20/16 23:34 Dose: 100 mg Insulin Aspart (Novolog Vial Sliding Scale -) 1 vial SQ ACHS [facility] PRN Reason: Protocol Last Admin: 11/21/16 06:12 Dose: Not Given Piperacillin Sod/Tazobactam Sod (Zosyn 3.375gm Ivpb (Pre-Docked)) 3.375 gm IVPB Q8H-IV JADEN PRN Reason: Protocol Pneumococcal 13-Valent Conj Vacc (Prevnar 13 Syringe -) 0.5 ml IM .ONCE ONE Stop: 11/20/16 10:01 Review of Systems - Review of Systems Constitutional: denies: Chills, Fever Cardiovascular: As noted above Respiratory: denies: Hemoptysis, Orthopnea, PND, SOB Gastrointestinal: denies: Abdominal Pain, Constipation, Diarrhea, Melena, Nausea , Rectal Bleeding, Vomiting Genitourinary: No symptoms reported Musculoskeletal: No symptoms reported Vital Signs: Last Vital Signs Temp Pulse Resp BP Pulse Ox 98.0 F 62 20 127/69 100 11/21/16 07:37 11/21/16 07:37 11/21/16 08:03 11/21/16 07:37 11/21/16 08:03 Neck: Supple Negative JVD negative Bruit Respiratory: Diminished Breath sounds at the bases Cardiovascular: S1 and S2 Irregularly Irregular Gastrointestinal: Soft benign Normal Bowel Sounds Extremities: Trace bilateral edema Labs: CBC, BMP 11/21/16 05:35 11/21/16 05:35 Hepatic Panel Total Bilirubin 0.5 mg/dL (0.2-1.0) D 11/21/16 05:35 AST 22 U/L (15-37) 11/21/16 05:35 ALT 8 U/L (12-78) L 11/21/16 05:35 Alkaline Phosphatase 79 U/L (45-117) 11/21/16 05:35 Albumin 1.7 g/dl (3.4-5.0) L 11/21/16 05:35 INR, PTT INR 1.50 (0.82-1.09) H D 11/20/16 06:13 Assessment/Plan ASSESSMENT: 1. Syncope, etiology to be determined, differential Includes neuro-cardiogenic syncope, transient A-V block, Sustained ventricular arrhythmia 2. CAD Post [place] angina pectoris 3. Systolic left ventricular Dysfunction with chronic class I [place] [employer] classification left ventricular Failure, compensated 4. Persistent atrial flutter [id number] score of 8 currently on NOAC therapy 5. Hypertension 6. Diabetes mellitus 7. Hypercholesterolemia 8. History of CVA 9. Organic brain syndrome/dementia 10. History of prostate carcinoma 11. Anemia PLAN: 1. Continue Pradaxa with caution considering the above noted anemia and D/C ASA , stable CAD with no recent coronary intervention 2. Continue Coreg 3. Initiate ELMER inhibitor therapy or ARB therapy unless it is absolutely contraindicated considering the above-noted systolic left ventricular Dysfunction 4. Continue PO Lasix with close monitoring of renal function 5. Continue Lipitor 6. Obtain 24-hour Holter Monitor Hari Hyde MD
--- NOTE | 2016-11-21 12:42 | CONS ---
DATE OF CONSULTATION: 11/21/2016 CONSULTATION REQUESTED BY: Dereje Rodriguez MD CHIEF COMPLAINT: Syncopal episode, cardiovascular evaluation. HISTORY OF PRESENT ILLNESS: History was predominantly obtained from the chart. Patient is a poor historian. An 86-year-old male of descent with known history of coronary artery disease, angina pectoris, systolic/diastolic left ventricular dysfunction with chronic class I [place] [employer] classification left ventricular failure, hypertensive cardiovascular disease, diabetes mellitus, hypercholesterolemia, cerebrovascular disease, prostate carcinoma, who presented to [facility] for evaluation of recurrent syncopal episodes. Initial episode was apparently 3 days ago which was not witnessed and subsequently patient had 2 [id number] recurrent syncopal episodes witnessed by his son and by EMS. Patient did not report any preceding symptomatology, i.e., dizziness or lightheadedness. Patient denies any chest discomfort. Patient denies any dyspnea. No reported orthopnea or paroxysmal nocturnal dyspnea. Patient denies any fatigue or tiredness. Patient in addition has a history of persistent atrial flutter on anticoagulation therapy with Pradaxa. PAST MEDICAL HISTORY: Coronary artery disease, post myocardial infarction, angina pectoris, systolic/diastolic left ventricular dysfunction with chronic class I [place] [employer] classification left ventricular failure, persistent atrial flutter on chronic anticoagulation therapy with Pradaxa, CHADS2-VASc score of 8, hypertensive cardiovascular disease, diabetes mellitus, hypercholesterolemia, prostate carcinoma, anemia. SOCIAL HISTORY: Denies smoking. FAMILY HISTORY: Positive for coronary artery disease. ALLERGIES: No known medical allergies. MEDICAL THERAPY: Currently includes acetaminophen 650 mg every 6 hours as needed, Duo-Neb nebulizer, aspirin 81 mg once a day, Lipitor 40 mg once a day, Casodex 50 mg once a day, Coreg 25 mg twice a day, vitamin D 1000 international units once a day, Pradaxa 150 mg twice a day, Colace 300 mg once a day, Aricept 5 mg once a day, ferrous sulfate 325 mg twice a day, Lasix 20 mg once a day, Neurontin 100 mg once a day, insulin coverage. REVIEW OF SYSTEMS:Head and Neck: Denies headache, photophobia, blurring of vision. Respiratory: No cough or sputum production. Cardiovascular: As noted above. Gastrointestinal: Denies nausea, vomiting, diarrhea, abdominal discomfort. Genitourinary: No symptoms reported. Musculoskeletal: No symptoms reported. PHYSICAL EXAMINATION:Vital Signs: Blood pressure is 127/69 mmHg, pulse rate is 62 beats per minute. Head and Neck: Pupils equally reactive to light and accommodation. Extraocular muscles are intact. Anicteric sclerae. Negative JVD. No bruit appreciated. Chest: Diminished breath sounds at the bases bilaterally. Cardiovascular: S1, S2, irregularly irregular. Abdomen: Soft, benign, normoactive bowel sounds. Extremities: Trace edema bilaterally. Decreased distal pulses. No calf tenderness. DIAGNOSTIC DATA: Electrocardiogram reveals atrial flutter with early transition, nonspecific T-wave abnormality. CT scan of the head report was noted. Carotid Doppler study revealed small- to moderate-sized plaque, right common carotid bifurcation without evidence of hemodynamically significant stenosis, large plaque, left common carotid bifurcation with 50% to 69% diameter stenosis. Brain MRI report was noted. No acute infarct. Echocardiography revealed normal left ventricular size with moderate diffuse global hypokinesia and moderate reduction of left ventricular ejection fraction, mitral valve leaflet thickening, mitral annular calcification, moderate mitral valve regurgitation, mild to moderate tricuspid valve regurgitation with calculated RVSP between 50 to 60 mmHg consistent with moderate to severe degree of pulmonary hypertension. CBC revealed a white cell count of 5.7, hemoglobin 9.9, platelet count of 184. INR was 1.50. Basic metabolic profile revealed a sodium of 139, potassium 4.2, BUN 14, creatinine 0.8, glucose 117. BNP 9120. ASSESSMENT: 1. Syncope, etiology to be determined. Differential includes neurocardiogenic syncope versus transient atrioventricular block versus sustained ventricular arrhythmia. 2. Coronary artery disease, post myocardial infarction, angina pectoris. 3. Systolic left ventricular dysfunction with chronic class I [place] [employer] classification left ventricular failure, compensated. 4. Persistent atrial flutter, CHADS2-VASc score of 8 on Pradaxa therapy. 5. Hypertensive cardiovascular disease. 6. Diabetes mellitus. 7. Hypercholesterolemia. 8. History of cerebrovascular disease. 9. Organic brain syndrome, dementia. 10. History of prostate carcinoma. 11. Anemia. RECOMMENDATIONS: 1. Continuation of Pradaxa therapy with caution considering the above-noted anemia and discontinuation of aspirin therapy since patient has stable coronary artery disease with no recent coronary intervention. 2. Continuation of Coreg therapy. 3. Initiation of ELMER inhibitor or angiotensin receptor matthew therapy unless it is absolutely contraindicated considering the above-noted systolic left ventricular dysfunction. 4. Continue p.o. Lasix with close monitoring of renal function. 5. Continue Lipitor therapy. 6. Obtain 24-hour Holter monitor. Thank you for the kind referral. JALEEL ACOSTA M.D. TRISHA/[id number]
--- NOTE | 2016-11-21 16:24 | DS ---
Physical Examination Vital Signs: Vital Signs Temperature 98.2 F 11/21/16 15:47 Pulse Rate 86 11/21/16 15:47 Respiratory Rate 16 11/21/16 15:47 Blood Pressure 136/81 11/21/16 15:47 O2 Sat by Pulse Oximetry (%) 100 11/21/16 08:03 Constitutional: Yes: No Distress Eyes: Yes: WNL HENT: Yes: WNL Neck: Yes: WNL Cardiovascular: Yes: Pulse Irregular Respiratory: Yes: WNL Gastrointestinal: Yes: WNL ...Rectal Exam: Yes: WNL Renal/: Yes: WNL Breast(s): Yes: WNL Musculoskeletal: Yes: WNL Extremities: Yes: WNL Edema: No Peripheral Pulses WNL: Yes Integumentary: Yes: WNL Wound/Incision: Yes: Clean/Dry Neurological: Yes: Pre-Existing Deficit ...Motor Strength: WNL Psychiatric: Yes: WNL Labs: CBC, BMP 11/21/16 05:35 11/21/16 05:35 Discharge Summary Reason For Visit: UTI Current Active Problems Afib (Acute) Anemia (Acute) Fall (Acute) HTN (hypertension) (Acute) Syncopal episodes (Acute) UTI (urinary tract infection) (Acute) Procedures: Principal: mri brain Other Procedures: labs Hospital Course: old cva, f/u with cardiology in [address] valdes and dr hill in 1 days Condition: Improved - Instructions Diet, Activity, Other Instructions: see dr hill tomorrow low sodium/ada/low fat Referrals: Jas Juares MD [Staff Physician] - Danuta Price MD [Staff Physician] - - Home Medications Comprehensive Discharge Medication List: Ambulatory Orders Aspirin [ASA -] 81 mg PO DAILY 07/28/16 Atorvastatin Ca [Lipitor] 40 mg PO HS 07/28/16 Carvedilol [Coreg -] 25 mg PO BID 07/28/16 Cholecalciferol (Vitamin D3) [Vitamin D3 -] 1,000 units PO DAILY 07/28/16 Dabigatran Etexilate Mesylate [Pradaxa -] 150 mg PO BID 07/28/16 Donepezil HCl 5 mg PO DAILY 07/28/16 Ferrous Sulfate 325 mg PO BID 07/28/16 Furosemide 20 mg PO DAILY 07/28/16 Nitroglycerin 0.4 mg SL ASDIR 07/28/16 Sitagliptin Phos/Metformin HCl [Janumet 50-1,000 mg Tablet] 1 each PO BID Bicalutamide [Casodex] 50 mg PO DAILY 11/19/16 Docusate Sodium 300 mg PO HS 11/19/16 Gabapentin 100 mg PO HS 11/19/16 Ipratropium/Albuterol Sulfate [Iprat-Albut 0.5-3(2.5) mg/3 ml] 3 ml IH PRN PRN 11/19/16 Sitagliptin Phos/Metformin HCl [Janumet 50-500 mg Tablet] 1 each PO DAILY Valsartan [Diovan] 40 mg PO DAILY #30 tablet 11/21/16
[2016-11-21] MEDS: ATORVASTATIN CA 40 MG TABLET (FP) PO SCH (21:34)
[2016-11-21] MEDS: DOCUSATE SODIUM 100 MG CAPSULE (FP) PO SCH (21:34)
[2016-11-21] MEDS: GABAPENTIN 100 MG CAPSULE (FP) PO SCH (21:34)
[2016-11-22] MEDS: FUROSEMIDE 20 MG TABLET (FP) PO SCH (06:25)
[2016-11-22] MEDS: INSULIN SLIDING SCALE (NOVOLOG) 1 VIAL SQ SCH ×2 (06:28→12:40)
[2016-11-22] MEDS ORDERED: PT OWN MED DRAWER 7, Y5N ONE (09:49)
[2016-11-22] MEDS ORDERED: VALSARTAN 40 MG TABLET (FP) PO SCH (10:00)
[2016-11-22] MEDS: BICALUTAMIDE 50 MG TABLET (FP) PO SCH (10:08)
[2016-11-22] MEDS: DONEPEZIL HCL 5 MG TABLET (FP) PO SCH (10:08)
[2016-11-22] MEDS: CARVEDILOL 25 MG TABLET (FP) PO SCH (10:08)
[2016-11-22] MEDS: CHOLECALCIFEROL (VITAMIN D3) 1,000 UNIT TABLET (FP) PO SCH (10:08)
[2016-11-22] MEDS: DABIGATRAN ETEXILATE MESYLATE 150 MG CAPSULE PO SCH (10:08)
[2016-11-22] MEDS: FERROUS SO4 325 MG TABLET (FP) PO SCH (10:08)
[2016-11-22 12:47] VITALS: BP 144/75; PULSE 73; TEMP 97.8
--- NOTE | 2016-11-22 13:13 | PN ---
Progress Note (short form) - Note Progress Note: Chief Complaint: Events noted, notes were reviewed. Patient denies any chest discomfort or dyspnea, atrial Flutter Persists, Holter monitor in progress History of Present Illness: Seen and examined on Telemetry. Events noted, notes were reviewed. Patient denies any chest discomfort or dyspnea, atrial Flutter Persists, Holter monitor in progress Trans-thoracic echocardiography dated 11/20/16 Revealed moderate degree of LV Systolic dysfunction with pulmonary HTN (RVSP between 50-60 Millimeters mercury) , moderate MR and mild to moderate TR Medications: Current Medications Acetaminophen (Tylenol -) 650 mg PO Q6H PRN PRN Reason: FEVER OR PAIN Albuterol/Ipratropium (Duoneb -) 1 amp NEB QIDR PRN PRN Reason: copd Atorvastatin Calcium (Lipitor -) 40 mg PO [facility] Last Admin: 11/21/16 21:34 Dose: 40 mg Bicalutamide (Casodex -) 50 mg PO DAILY [facility] Last Admin: 11/22/16 10:08 Dose: 50 mg Carvedilol (Coreg -) 25 mg PO BID [facility] Last Admin: 11/22/16 10:08 Dose: 25 mg Cholecalciferol (Vitamin D3 -) 1,000 unit PO DAILY [facility] Last Admin: 11/22/16 10:08 Dose: 1,000 unit Dabigatran (Pradaxa -) 150 mg PO BID [facility] Last Admin: 11/22/16 10:08 Dose: 150 mg Docusate Sodium (Colace -) 300 mg PO [facility] Last Admin: 11/21/16 21:34 Dose: 300 mg Donepezil HCl (Aricept -) 5 mg PO DAILY [facility] Last Admin: 11/22/16 10:08 Dose: 5 mg Ferrous Sulfate (Feosol -) 325 mg PO BID [facility] Last Admin: 11/22/16 10:08 Dose: 325 mg Furosemide (Lasix -) 20 mg PO DAILY@0600 [facility] Last Admin: 11/22/16 06:25 Dose: 20 mg Gabapentin (Neurontin -) 100 mg PO [facility] Last Admin: 11/21/16 21:34 Dose: 100 mg Insulin Aspart (Novolog Vial Sliding Scale -) 1 vial SQ ACHS [facility] PRN Reason: Protocol Last Admin: 11/22/16 12:40 Dose: Not Given Piperacillin Sod/Tazobactam Sod (Zosyn 3.375gm Ivpb (Pre-Docked)) 3.375 gm IVPB Q8H-IV JADEN PRN Reason: Protocol Valsartan (Diovan -) 40 mg PO DAILY [facility] Last Admin: 11/22/16 10:08 Dose: 40 mg Review of Systems - Review of Systems Constitutional: denies: Chills, Fever Cardiovascular: As noted above Respiratory: denies: Cough or Hemoptysis Gastrointestinal: denies: Nausea, Vomiting, Diarrhea, Constipation or Abdominal Pain Genitourinary: No symptoms reported Musculoskeletal: No symptoms reported Vital Signs: Last Vital Signs Temp Pulse Resp BP Pulse Ox 97.8 F 73 20 144/75 95 11/22/16 10:00 11/22/16 10:00 11/22/16 10:00 11/22/16 10:00 11/22/16 09:00 Neck: Supple Negative JVD negative Bruit Respiratory: Diminished Breath sounds at the bases Cardiovascular: S1 and S2 Irregularly Irregular Gastrointestinal: Soft benign Normal Bowel Sounds Extremities: Trace bilateral edema Labs: CBC, BMP 11/21/16 05:35 11/21/16 05:35 INR, PTT INR 1.50 (0.82-1.09) H D 11/20/16 06:13 Assessment/Plan ASSESSMENT: 1. Syncope, etiology to be determined, differential Includes neuro-cardiogenic syncope, transient A-V block, Sustained ventricular arrhythmia 2. CAD Post [place] angina pectoris 3. Systolic left ventricular Dysfunction with chronic class I [place] [employer] classification left ventricular Failure, compensated, euvolemic 4. Persistent atrial flutter [id number] score of 8 currently on NOAC therapy 5. Hypertension 6. Diabetes mellitus 7. Hypercholesterolemia 8. History of CVA 9. Organic brain syndrome/dementia 10. History of prostate carcinoma 11. Anemia PLAN: 1. Continue Pradaxa with caution considering the above noted anemia and defer reinitiating ASA therapy, stable CAD with no recent coronary intervention 2. Continue Coreg 3. Continue Diovan 4. Continue PO Lasix with close monitoring of renal function 5. Continue Lipitor 6. Further recommendation will depend upon results of Holter monitor Hari Hyde MD
--- NOTE | 2016-11-22 15:03 | HOL ---
Hook-up date: 2016-11-21 12:28:00 Duration: 23:32:00 Test Indications: Medications: 56058 QRS complexes 105 Ventricular ectopics which represent <1 % of total QRS comp. * Supraventricular ectopics which represent % of total QRS comp. * Paced QRS complexs which represent % of total QRS comp. 3 % of Time Classified as Noise VENTRICULAR ECTOPY 95 Isolated 0 Bigeminal Cycles 1 Couplets 2 Runs 8 Beats in Runs 5 Beats LONGEST at 118 BPM at 19:25:00 2016-11-21 3 Beats FASTEST at 135 BPM at 01:43:06 2016-11-22 SUPRAVENTRICULAR ECTOPY * Isolated * Couplets * Runs * Beats in Runs * Beats LONGEST at * BPM at :: -- * Beats FASTEST at * BPM at :: -- HEART RATES 43 MIN at 01:18:51 2016-11-22 65 AVG 71 MAX at 11:32:10 2016-11-22 LONGEST RR 0.864 secs at 13:00:51 2016-11-21 Scanned by Crista Blake on 11/22/16 The underlying rhythm is atrial flutter with variable AV block; the average HR was 65 bpm. There were infrequent isolated PVCs, with 2 runs (the longest 5 beats at 118 bpm; the fastest was 3 beats at 135 bpm. There were no significant pauses. Confirmed by MEGHA WATKINS, JOSH ([id number]) on 11/22/2016 3:02:49 PM Referred By: OMER WILKINSON DR Overread By: JOSH CLEVELAND MD
== END 2016-11-22 15:14 | disposition home or self-care (01) ==
LOC: JER 08:33 → INTOOBSV 17:43 → UNDOADMOB 17:43 → JERBED 17:43 → UNDOADMIN 17:47 → JERBED 18:13 → J4W 11-20 19:19
PROVIDERS: ADMIT Family Medicine; ATTEND Family Medicine
PROC: 3E03329 Introduction of Other Anti-infective into Peripheral Vein, Percutaneous Approach (ICD-10-PCS; principal; 2016-11-19)
PROC: 3E0234Z Introduction of Serum, Toxoid and Vaccine into Muscle, Percutaneous Approach (ICD-10-PCS; 2016-11-19)
DX: N39.0 Urinary tract infection, site not specified (principal); R55 Syncope and collapse; I10 Essential (primary) hypertension; I48.91 Unspecified atrial fibrillation; I25.10 Atherosclerotic heart disease of native coronary artery without angina pectoris; I25.2 Old myocardial infarction; F03.90 Unspecified dementia, unspecified severity, without behavioral disturbance, psychotic disturbance, mood disturbance, and anxiety; E11.9 Type 2 diabetes mellitus without complications; E78.5 Hyperlipidemia, unspecified; E53.8 Deficiency of other specified B group vitamins; D64.9 Anemia, unspecified; H40.9 Unspecified glaucoma; Z86.73 Personal history of transient ischemic attack (TIA), and cerebral infarction without residual deficits; Z85.46 Personal history of malignant neoplasm of prostate; Z79.82 Long term (current) use of aspirin; Z79.01 Long term (current) use of anticoagulants; Z79.84 Long term (current) use of oral hypoglycemic drugs; W19.XXXA Unspecified fall, initial encounter; Y93.89 Activity, other specified; Y92.9 Unspecified place or not applicable
CPT/HCPCS: 36415; 70450-TC; 70551-TC; 80053; 80061; 81003; 81015; 82272; 82728; 83036; 83540; 83550; 83721; 83735; 83880; 84484; 85025; 85027; 85610; 87040; 87086; 90670; 93005; 93010; 93225; 93226; 93306-TC; 93880-TC; 97116-GP; 97161-GP; 99285-25; G0378

== ENCOUNTER 2016-12-21 12:06 | Inpatient (IN) | payer OTHER ==
[2016-12-21 12:29] VITALS: BMI 24.3
--- NOTE | 2016-12-21 12:48 | PDOC ---
History of Present Illness - General Chief Complaint: Weakness Stated Complaint: WEAKNESS Time Seen by Provider: 12/21/16 12:37 - History of Present Illness Initial Comments: 12/21/16 12:39 Mr. Anna is an 86 year old male with a significant past medical history of DM, HTN, afib, Prostate cancer, stroke x2, and dementia who presents to the emergency department with a several day history of extreme lethargy. The patient denies chest pain, shortness of breath, headache and dizziness. Denies fever, chills, nausea, vomit, diarrhea and constipation. Denies dysuria, frequency, urgency and hematuria. Allergies: NKDA Past surgical history: Hip replacement and cystoscopy Social history: Denies PMD - Syna Kandaratpallel 12/21/16 12:49 12/21/16 12:59 Past History - Past Medical History Allergies/Adverse Reactions: Allergies Allergy/AdvReac Type Severity Reaction Status Date / Time No Known Drug Allergies Allergy Verified 12/21/16 12:20 Home Medications: Ambulatory Orders Aspirin [ASA -] 81 mg PO DAILY 07/28/16 Cholecalciferol (Vitamin D3) [Vitamin D3 -] 1,000 units PO DAILY 07/28/16 Dabigatran Etexilate Mesylate [Pradaxa -] 150 mg PO BID 07/28/16 Donepezil HCl 5 mg PO DAILY 07/28/16 Ferrous Sulfate 325 mg PO BID 07/28/16 Furosemide 20 mg PO DAILY 07/28/16 Nitroglycerin 0.4 mg SL ASDIR 07/28/16 Bicalutamide [Casodex] 50 mg PO DAILY 11/19/16 Docusate Sodium 300 mg PO HS 11/19/16 Gabapentin 100 mg PO HS 11/19/16 Ipratropium/Albuterol Sulfate [Iprat-Albut 0.5-3(2.5) mg/3 ml] 3 ml IH PRN PRN 11/19/16 Valsartan [Diovan] 40 mg PO DAILY #30 tablet 11/21/16 Metoprolol Succinate [Toprol Xl -] 25 mg PO DAILY 12/21/16 Sitagliptin Phosphate [Januvia -] 100 mg PO DAILY@0700 12/21/16 Anemia: Yes Asthma: Yes Cancer: Yes (PROSTATE CA) Cardiac Disorders: Yes ([place] 2014, CAD,A.FIB) CVA: Yes (CVA X 2- 2006, 2012) COPD: No CHF: No Dementia: Yes Diabetes: Yes GI Disorders: No Disorders: No HTN: Yes Hypercholesterolemia: Yes Liver Disease: No Seizures: No Thyroid Disease: No - Surgical History Orthopedic Surgery: Yes (HIP REPLACEMENT) - Psycho/Social/Smoking Cessation Hx Anxiety: No Suicidal Ideation: No Smoking History: Never smoked Have you smoked in the past 12 months: No Number of Cigarettes Smoked Daily: 0 Information on smoking cessation initiated: No Hx Alcohol Use: No Drug/Substance Use Hx: No Substance Use Type: None Hx Substance Use Treatment: No Review of Systems - Review of Systems Comments:: 12/21/16 12:39 Unable to perform with patient mental state. *Physical Exam - Vital Signs Last Vital Signs Temp Pulse Resp BP Pulse Ox 99.1 F 55 L 16 116/64 97 12/21/16 12:20 12/21/16 12:20 12/21/16 12:20 12/21/16 12:20 12/21/16 12:20 - Physical Exam Comments: 12/21/16 12:40 GENERAL: +Somnolent and minimally responsive HEAD: No signs of trauma, normocephalic, atraumatic EYES: PERRLA, EOMI, sclera anicteric, conjunctiva clear ENT: +Dry mucosa. Auricles normal inspection, hearing grossly normal, nares patent, oropharynx clear without exudates. NECK: Normal ROM, supple, no lymphadenopathy, JVD, or masses LUNGS: Clear to auscultation bilaterally. HEART: Regular rate and rhythm, normal S1 and S2, no murmurs, rubs or gallops, peripheral pulses normal and equal bilaterally. ABDOMEN: Soft, normoactive bowel sounds. No guarding, no rebound. No masses EXTREMITIES: Normal inspection, Normal range of motion, no edema. No clubbing or cyanosis. NEUROLOGICAL: Unable to assess as patient minimally responsive. SKIN: Warm, Dry, normal turgor, no rashes or lesions noted. Procedures - Central Line Central Line Lumen: triple Central Line Position: internal jugular (R) Anesthesia: 1% Lidocaine Amount of anesthesia (ccs): 4 Complications: none Post Central Line Insertion: sutured, good blood return, position confirmed w/ CXR ED Treatment Course - LABORATORY CBC & Chemistry Diagram: 12/21/16 12:57 12/21/16 12:57 Medical Decision Making - Medical Decision Making 12/21/16 16:04 Mr. Anna presents with acute lethargy over the last several weeks. Labs significant for lactic acid of 6.5 and UTI as below. Sepsis protocol activated; central line placed as peripheral was not able to be maintained. Patient admitted to ICU for further care. Laboratory Results - last 24 hr 12/21/16 12/21/16 12/21/16 12:57 12:57 12:57 WBC 16.9 H D RBC 3.08 L Hgb 7.9 L D Hct 25.7 L D MCV 83.5 MCH 25.8 MCHC 30.9 L RDW 16.9 H Plt Count 265 D MPV 8.4 Neutrophils % 81.8 D Lymphocytes % 6.8 L D Monocytes % 11.2 H Eosinophils % 0.1 D Basophils % 0.1 INR 1.53 H PTT (Actin FS) 61.0 H D Sodium 144 Potassium 3.8 Chloride 107 Carbon Dioxide 24 Anion Gap 13 BUN 40 H D Creatinine 1.2 D Creat Clearance w eGFR 57.27 Random Glucose 196 H D Lactic Acid Calcium 12.7 H D Total Bilirubin 0.6 AST 77 H D ALT 15 D Alkaline Phosphatase 192 H D Creatine Kinase 95 Troponin I 0.03 Total Protein 6.7 Albumin 1.5 L Urine Color Urine Appearance Urine pH Urine Protein Urine Glucose (UA) Urine Ketones Urine Blood Urine Nitrite Urine Bilirubin Urine Urobilinogen Ur Leukocyte Esterase Urine RBC Urine WBC Urine Bacteria Hyaline Casts Urine Mucus Urine Yeast Blood Type Antibody Screen 12/21/16 12/21/16 12/21/16 12:57 12:57 14:15 WBC RBC Hgb Hct MCV MCH MCHC RDW Plt Count MPV Neutrophils % Lymphocytes % Monocytes % Eosinophils % Basophils % INR PTT (Actin FS) Sodium Potassium Chloride Carbon Dioxide Anion Gap BUN Creatinine Creat Clearance w eGFR Random Glucose Lactic Acid 6.5 H* Calcium Total Bilirubin AST ALT Alkaline Phosphatase Creatine Kinase Troponin I Total Protein Albumin Urine Color Red Urine Appearance Clear Urine pH 6.5 Urine Protein 2+ H Urine Glucose (UA) Negative Urine Ketones Trace H Urine Blood 3+ H Urine Nitrite Positive Urine Bilirubin 2+ H Urine Urobilinogen 1.0 Ur Leukocyte Esterase 2+ H Urine RBC 1558 Urine WBC 1295 Urine Bacteria Many Hyaline Casts 27 Urine Mucus Rare Urine Yeast Few Blood Type A POSITIVE Antibody Screen Negative *DC/Admit/Observation/Transfer Diagnosis at time of Disposition: UTI (urinary tract infection) Qualifiers: Urinary tract infection type: site unspecified Hematuria presence: with hematuria Qualified Code(s): N39.0 - Urinary tract infection, site not specified ; R31.9 - Hematuria, unspecified Sepsis Qualifiers: Sepsis type: sepsis due to unspecified organism Qualified Code(s): A41.9 - Sepsis, unspecified organism - Discharge Dispostion Admit: Yes
[2016-12-21 13:03] LABS: BASOPHIL 0.1 % (0-2.0); EOSINOPHIL 0.1 % (0-4.5); MCH 25.8 pg (25.7-33.7); MCHC 30.9 g/dl (32.0-35.9); MEAN CELL VOLUME 83.5 fl (80-96); MEAN PLT VOLUME 8.4 fl (7.5-11.1); NEUTROPHILS 81.8 % (42.8-82.8); PLATELET COUNT 265 K/MM3 (134-434); RDW 16.9 % (11.9-15.9); WHITE BLOOD COUNT 16.9 K/mm3 (4.0-10.0)
--- NOTE | 2016-12-21 13:11 | PDOC ---
Attending Attestation - Resident Resident Name: ErosBinFidel - ED Attending Attestation I have performed the following: I have examined & evaluated the patient, The case was reviewed & discussed with the resident, I agree w/resident's findings & plan, Exceptions are as noted - HPI HPI: 12/21/16 13:08 86-year-old male with history of hypertension, diabetes, atrial fibrillation, stroke in the past brought in by EMS after family called 911 atrial given worsening lethargy for 1-2 days. - Physicial Exam PE: 12/21/16 13:09 Temp 99.1 rectally, blood pressure and heart rate within normal limits Somnolent but arousable to voice Course breath sounds at the bases bilaterally Abdomen is soft Neurovascular intact - Critical Care Time Total Critical Care Time: 40 Critical Care Statement: The care of this patient involved high complexity decision making to prevent further life threatening deterioration of the patient 's condition and/or to evaluate & treat vital organ system(s) failure or risk of failure. - Medical Decision Making 12/21/16 13:10 Patient seen and evaluated with the resident. I agree with the overall evaluation, assessment, and management with the following summary of visit: 86-year-old male with multiple medical problems presents with worsening lethargy /altered mental status. Question metabolic/infectious, less likely focal neuro process, rule out cardiovascular process. Seen immediately upon arrival and placed on monitor Labs, urinalysis Chest x-ray, CT head IV fluids Reassess, likely admission 12/21/16 14:46 leukocytosis and acute on chronic anemia. elevated lactate >6. Sepsis protocol initiated. UA with elevated rbc and wbc. cultures obtained, ordered IV ceftriaxone. Difficulty obtaining IV access, will reattempt or place central line for fluid resuscitation. Heart Score/ECG Review #1 ECG reviewed & interpreted by me at: 12:30 12/21/16 13:11 Atrial flutter at 71, T-wave flattening in the lateral leads, no acute ST changes
[2016-12-21 13:28] LABS: INR 1.53 (0.82-1.09)
[2016-12-21] MEDS ORDERED: SODIUM CHLORIDE 2,000 ML IV ONE (13:50)
[2016-12-21 14:30] LABS: PH,URINE 6.5 (5.0-8.0); URINE APPEARANCE CLEAR; URINE BILIRUBIN 2+ (NEGATIVE); URINE BLOOD 3+ (NEGATIVE); URINE COLOR RED; URINE GLUCOSE (UA) NEGATIVE (NEGATIVE); URINE KETONE TRACE (NEGATIVE)
[2016-12-21 14:35] LABS: URINE LEUK ESTERASE 2+ (NEGATIVE); URINE NITRITE POSITIVE (NEGATIVE); URINE PROTEIN 2+ (NEGATIVE)
[2016-12-21 14:36] LABS: URINE BACTERIA MANY /hpf (NONE SEEN); URINE HYALINE CAST 27 /lpf; URINE MUCUS RARE; URINE RBC 1558 /hpf (0-3); URINE WBC 1295 /hpf (3-5); YEAST FEW
[2016-12-21 14:43] LABS: ALBUMIN 1.5 g/dl (3.4-5.0); ANION GAP 13 (8-16); CALCIUM 12.7 mg/dL (8.5-10.1); CO2 24 mmol/L (21-32); CREATININE 1.2 mg/dL (0.7-1.3); GLUCOSE,RANDOM 196 mg/dL (74-106); SGOT/AST 77 U/L (15-37); SGPT/ALT 15 U/L (12-78); TOT PROT 6.7 g/dl (6.4-8.2)
[2016-12-21] MEDS ORDERED: CEFTRIAXONE 1 GM in DEXTROSE 5%-WATER - 50 ML IVPB ONE (14:45)
[2016-12-21 14:47] LABS: ALK PHOS 192 U/L (45-117); BILIRUBIN,TOTAL 0.6 mg/dL (0.2-1.0); CPK 95 IU/L (39-308); TROPONIN I 0.03 ng/ml (0.00-0.05)
--- NOTE | 2016-12-21 15:31 | EKG ---
Test Reason : Blood Pressure : / mmHG Vent. Rate : 071 BPM Atrial Rate : 326 BPM P-R Int : 000 ms QRS Dur : 114 ms QT Int : 420 ms P-R-T Axes : 000 -86 087 degrees QTc Int : 456 ms ATRIAL FLUTTER WITH VARIABLE A-V BLOCK WITH PREMATURE VENTRICULAR OR ABERRANTLY CONDUCTED COMPLEXES LEFT AXIS DEVIATION INCOMPLETE RIGHT BUNDLE BRANCH BLOCK ABNORMAL ECG WHEN COMPARED WITH ECG OF 19-NOV-2016 09:13, INCOMPLETE RIGHT BUNDLE BRANCH BLOCK IS NOW PRESENT Confirmed by YENNY REYEZ MD ([id number]) on 12/21/2016 3:31:34 PM Referred By: Confirmed By:YENNY REYEZ MD
[2016-12-21] MEDS ORDERED: CEFTRIAXONE 50 ML ONE (15:44)
[2016-12-21] MEDS ORDERED: SODIUM CHLORIDE 1,000 ML IV ONE (17:01)
[2016-12-21] MEDS ORDERED: ACETAMINOPHEN 325 MG TABLET (FP) PO PRN (18:13)
[2016-12-21] MEDS ORDERED: SODIUM CHLORIDE 1,000 ML IV SCH (18:15)
--- NOTE | 2016-12-21 18:21 | HP ---
Admitting History and Physical - Primary Care Physician PCP: Geovanna Pruitt - Admission Chief Complaint: lethargy History of Present Illness: Mr. Anna is an 86 year old male with a significant past medical history of DM, HTN, afib, Prostate cancer, stroke x2, and dementia who presents to the emergency department with a several day history of extreme lethargy. 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: CVA (2006,12/2009), Dementia Cardiovascular: Yes: AFIB (aflutter), CAD, HTN, Hyperlipdemia, [place] (NSTEMI with left ventricular dysfunction-2014) Renal/: Yes: BPH, Cancer (Prostate Ca), Other (cystoscopy-2015,bladder stones- 2015,) Heme/Onc: Yes: Anemia, B12 Deficiency Musculoskeletal: Yes: Other (left hip fx) - Smoking History Smoking history: Never smoked Have you smoked in the past 12 months: No Aproximately how many cigarettes per day: 0 - Alcohol/Substance Use Hx Alcohol Use: No Home Medications - Allergies Allergies/Adverse Reactions: Allergies Allergy/AdvReac Type Severity Reaction Status Date / Time No Known Drug Allergies Allergy Verified 12/21/16 12:20 - Home Medications Home Medications: Ambulatory Orders Aspirin [ASA -] 81 mg PO DAILY 07/28/16 Cholecalciferol (Vitamin D3) [Vitamin D3 -] 1,000 units PO DAILY 07/28/16 Dabigatran Etexilate Mesylate [Pradaxa -] 150 mg PO BID 07/28/16 Donepezil HCl 5 mg PO DAILY 07/28/16 Ferrous Sulfate 325 mg PO BID 07/28/16 Furosemide 20 mg PO DAILY 07/28/16 Nitroglycerin 0.4 mg SL ASDIR 07/28/16 Bicalutamide [Casodex] 50 mg PO DAILY 11/19/16 Docusate Sodium 300 mg PO HS 11/19/16 Gabapentin 100 mg PO HS 11/19/16 Ipratropium/Albuterol Sulfate [Iprat-Albut 0.5-3(2.5) mg/3 ml] 3 ml IH PRN PRN 11/19/16 Valsartan [Diovan] 40 mg PO DAILY #30 tablet 11/21/16 Metoprolol Succinate [Toprol Xl -] 25 mg PO DAILY 12/21/16 Sitagliptin Phosphate [Januvia -] 100 mg PO DAILY@0700 12/21/16 Family Disease History - Family Disease History Family Disease History: Other: Father (CVA), Mother (CVA), Brother (CVA), Son ( HEALTHY), Daughter (X 2- HEALTHY) Physical Examination Vital Signs: Vital Signs Temperature 99.1 F 12/21/16 12:20 Pulse Rate 76 12/21/16 16:57 Respiratory Rate 16 12/21/16 16:57 Blood Pressure 143/67 12/21/16 16:57 O2 Sat by Pulse Oximetry (%) 100 12/21/16 16:57 Constitutional: Yes: Calm HENT: Yes: Atraumatic Neck: Yes: Supple Cardiovascular: Yes: Regular Rate and Rhythm Respiratory: Yes: Rhonchi Gastrointestinal: Yes: Normal Bowel Sounds Edema: Yes Neurological: Yes: Other (awake but lethargic answeing questions) Imaging - Results X-ray: Report Reviewed Cat Scan: Report Reviewed Problem List - Problems (1) Sepsis Assessment/Plan: iv abx ivf bcx, ucx id consult Code(s): A41.9 - SEPSIS, UNSPECIFIED ORGANISM Qualifiers: Sepsis type: sepsis due to unspecified organism Qualified Code(s): A41.9 - Sepsis, unspecified organism (2) UTI (urinary tract infection) Assessment/Plan: cx sent Code(s): N39.0 - URINARY TRACT INFECTION, SITE NOT SPECIFIED Qualifiers: Urinary tract infection type: site unspecified Hematuria presence: with hematuria Qualified Code(s): N39.0 - Urinary tract infection, site not specified; R31.9 - Hematuria, unspecified (3) Afib Assessment/Plan: on pradaxa Code(s): I48.91 - UNSPECIFIED ATRIAL FIBRILLATION Qualifiers: Atrial fibrillation type: chronic Qualified Code(s): I48.2 - Chronic atrial fibrillation (4) HTN (hypertension) Assessment/Plan: on meds Code(s): I10 - ESSENTIAL (PRIMARY) HYPERTENSION (5) Prostate CA Code(s): C61 - MALIGNANT NEOPLASM OF PROSTATE Assessment/Plan Laboratory Results - last 24 hr 12/21/16 12/21/16 12/21/16 12:57 12:57 12:57 WBC 16.9 H D RBC 3.08 L Hgb 7.9 L D Hct 25.7 L D MCV 83.5 MCH 25.8 MCHC 30.9 L RDW 16.9 H Plt Count 265 D MPV 8.4 Neutrophils % 81.8 D Lymphocytes % 6.8 L D Monocytes % 11.2 H Eosinophils % 0.1 D Basophils % 0.1 INR 1.53 H PTT (Actin FS) 61.0 H D Sodium 144 Potassium 3.8 Chloride 107 Carbon Dioxide 24 Anion Gap 13 BUN 40 H D Creatinine 1.2 D Creat Clearance w eGFR 57.27 Random Glucose 196 H D Lactic Acid Calcium 12.7 H D Total Bilirubin 0.6 AST 77 H D ALT 15 D Alkaline Phosphatase 192 H D Creatine Kinase 95 Troponin I 0.03 Total Protein 6.7 Albumin 1.5 L Urine Color Urine Appearance Urine pH Urine Protein Urine Glucose (UA) Urine Ketones Urine Blood Urine Nitrite Urine Bilirubin Urine Urobilinogen Ur Leukocyte Esterase Urine RBC Urine WBC Urine Bacteria Hyaline Casts Urine Mucus Urine Yeast Blood Type Antibody Screen 12/21/16 12/21/16 12/21/16 12:57 12:57 14:15 WBC RBC Hgb Hct MCV MCH MCHC RDW Plt Count MPV Neutrophils % Lymphocytes % Monocytes % Eosinophils % Basophils % INR PTT (Actin FS) Sodium Potassium Chloride Carbon Dioxide Anion Gap BUN Creatinine Creat Clearance w eGFR Random Glucose Lactic Acid 6.5 H* Calcium Total Bilirubin AST ALT Alkaline Phosphatase Creatine Kinase Troponin I Total Protein Albumin Urine Color Red Urine Appearance Clear Urine pH 6.5 Urine Protein 2+ H Urine Glucose (UA) Negative Urine Ketones Trace H Urine Blood 3+ H Urine Nitrite Positive Urine Bilirubin 2+ H Urine Urobilinogen 1.0 Ur Leukocyte Esterase 2+ H Urine RBC 1558 Urine WBC 1295 Urine Bacteria Many Hyaline Casts 27 Urine Mucus Rare Urine Yeast Few Blood Type A POSITIVE Antibody Screen Negative 12/21/16 17:05 WBC RBC Hgb Hct MCV MCH MCHC RDW Plt Count MPV Neutrophils % Lymphocytes % Monocytes % Eosinophils % Basophils % INR PTT (Actin FS) Sodium Potassium Chloride Carbon Dioxide Anion Gap BUN Creatinine Creat Clearance w eGFR Random Glucose Lactic Acid 5.5 H* Calcium Total Bilirubin AST ALT Alkaline Phosphatase Creatine Kinase Troponin I Total Protein Albumin Urine Color Urine Appearance Urine pH Urine Protein Urine Glucose (UA) Urine Ketones Urine Blood Urine Nitrite Urine Bilirubin Urine Urobilinogen Ur Leukocyte Esterase Urine RBC Urine WBC Urine Bacteria Hyaline Casts Urine Mucus Urine Yeast Blood Type Antibody Screen Active Medications Generic Name Dose Route Start Last Admin Trade Name Freq PRN Reason Stop Dose Admin Acetaminophen 650 mg 12/21/16 18:13 Tylenol - PO Q6H PRN FEVER OR PAIN Dabigatran 150 mg 12/21/16 22:00 Pradaxa - PO BID [facility] Donepezil HCl 5 mg 12/22/16 10:00 Aricept - PO DAILY JADEN Furosemide 20 mg 12/22/16 10:00 Lasix - PO DAILY JADEN Sodium Chloride 1,000 mls @ 125 mls/hr 12/21/16 17:01 12/21/16 17:01 Normal Saline - IV 12/22/16 01:00 125 mls/hr ASDIR ONE Administration Ceftriaxone Sodium 50 mls @ 100 mls/hr 12/22/16 10:00 Rocephin 1gm Ivpb (Pre-Docked) IVPB 12/22/16 11:59 DAILY [facility] Sodium Chloride 1,000 mls @ 75 mls/hr 12/21/16 18:15 Normal Saline - IV ASDIR JADEN Metoprolol Succinate 25 mg 12/22/16 10:00 Toprol Xl - PO DAILY [facility] Sitagliptin Phosphate 100 mg 12/22/16 07:00 Januvia - PO DAILY@0700 JADEN Valsartan 40 mg 12/22/16 10:00 Diovan - PO DAILY JADEN spoke to daughter who is also health care proxy in detail about pts condition also asked her to think about advance directives and code status
[2016-12-21 20:27] LABS: MCH 26.8 pg (25.7-33.7); MCHC 31.6 g/dl (32.0-35.9); MEAN PLT VOLUME 8.8 fl (7.5-11.1); PLATELET COUNT 219 K/MM3 (134-434); RDW 17.2 % (11.9-15.9); WHITE BLOOD COUNT 15.4 K/mm3 (4.0-10.0)
--- NOTE | 2016-12-21 20:47 | CONSULT ---
Consultation: REQUESTING PROVIDER: CONSULT REQUEST: We have been asked to medically evaluate this patient for sepsis/AMS likely 2/2 UTI HISTORY OF PRESENT ILLNESS: Pt is an 86 yo man w/ pmh of DM, HTN, aFib (on Pradaxa/ASA), prostate Ca, multiple prior strokes, and dementia who presented to the ED with 3-4 days of extreme lethargy in setting of multiple weeks of declining energy levels and FTT. Per family, Pt w/ fall in 09/2016 (w/ possible ICH/CVA?) w/ discharge to [facility] for 6 weeks before returning home with 24hr FLOAT BUILDER care. At [place]/home, pt has remained bed-bound w/ progressive LE atrophy and unsteady gate due to residual neurological deficits from prior CVA. Pt has become progressively deconditioned, most notably in recent weeks, with declining energy level and FTT. A few days prior to admission, family noted patient becoming more drowsy and less responsive. Family was urged to bring pt into ER by FLOAT BUILDER. Per family, denies LONG, dizziness, cough, congestion, sore throat, chest pain, abdominal pain , N/V, rashes, diarrhea or constipation. Denies dysuria, pyuria, hematuria, frequency or hesitancy. No recent travel or sick contacts. At baseline, pt w/ moderate dementia, but remains conversant w/ family, w/ severe BL LE atrophy/deconditioning requiring wheelchair. Pt hospitalized one month ago for multiple syncopal episodes, w/ positive urine culture for ESBL klebsiella PNA, but w/ no infectious symptoms and was not treated at this time. Per son, pt w/ multiple UTIs in past, but first hospitalization for suspected UTI. ED course notable for: 1) Elevated Lactate (6.5), elevated WBC (16.9) w/ left shift 2) UA 2+ leuk esterase, nitrates. >1000 WBC, RBCs 3) BUN 40, Cr 1.2 REVIEW OF SYSTEMS: CONSTITUTIONAL: Progressive weakness, decreased PO intake, lethargy Absent: fever, chills, diaphoresis, malaise, weight change HEENT: Absent: rhinorrhea, nasal congestion, throat pain, mouth swelling, ear pain, eye pain, visual changes CARDIOVASCULAR: Absent: chest pain, syncope, palpitations, irregular heart rate RESPIRATORY: Absent: cough, shortness of breath, dyspnea with exertion, orthopnea GASTROINTESTINAL: Absent: abdominal pain, abdominal distension, nausea, vomiting, diarrhea, constipation, melena GENITOURINARY: flank pain Absent: dysuria, frequency, urgency, hesitancy, hematuria, genital pain MUSCULOSKELETAL: back pain Absent: myalgia, arthralgia, joint swelling, back pain, neck pain SKIN: Absent: rash, itching HEMATOLOGIC/IMMUNOLOGIC: recurrent UTIs Absent: easy bleeding, easy bruising, ENDOCRINE: cold intolerance Absent: unexplained weight gain, unexplained weight loss, heat intolerance NEUROLOGIC: Marked lower extremity weakness, lethargy, AMS Absent: headache, focal weakness or paresthesias, unsteady gait, seizure, bladder or bowel incontinence PHYSICAL EXAMINATION Vital Signs - 24 hr 12/21/16 12/21/16 12/21/16 16:57 17:30 17:45 Temperature 97.6 F Pulse Rate 72 Pulse Rate [ 76 Apical] Respiratory 16 14 14 Rate Blood Pressure 134/66 Blood Pressure 143/67 [Right Arm] O2 Sat by Pulse 100 100 Oximetry (%) GENERAL: Patient lethargic, very drowsy and intermittently conscious during interview. A&Ox2. HEAD: Normal with no signs of trauma. EYES: Pupils small, minimally reactive to light, sclera anicteric, conjunctiva clear. No lid lag. EARS, NOSE, THROAT: Ears normal, nares patent, poor dentition w/ no oral lesions or thrush. Moist mucous membranes. NECK: Normal range of motion, supple without lymphadenopathy, JVD, or masses. LUNGS: Decreased bibasilar breath sounds. No wheezes, rales or crackles. No accessory muscle use. HEART: Irregularly irregular rhythm, normal S1, prominent S2, rub or gallop. ABDOMEN: + suprapubic pain on palpation. Soft, nontender, not distended, hypoactive bowel sounds, no guarding, no rebound, no masses. Negative murphys. No hepatomegaly or splenomegaly. Mild bilateral flank pain per patient. MUSCULOSKELETAL: Normal range of motion at all joints. No bony deformities or tenderness. No CVA tenderness. UPPER EXTREMITIES: 2+ pulses, warm, well-perfused. No cyanosis. No clubbing. Cap refill <2 seconds. No peripheral edema. LOWER EXTREMITIES: 1+ pulses, [id number], well-perfused. No calf tenderness. No peripheral edema. NEUROLOGICAL: Cranial nerves grossly intact. 5/5 editor trade journal strength BL. 4/5 UE flexion/extension BL. 1/5 LE strength grossly. Preserved sensation on dorsal/ plantar surfaces of foot BL. Aphasic secondary to lethargy. PSYCHIATRIC: Cooperative, directable when awake. Very lethargic. SKIN: Warm, dry, normal turgor, no rashes or lesions noted. Laboratory Results - last 24 hr 12/21/16 17:05 Lactic Acid 5.5 H* Laboratory Tests 12/21/16 12/21/16 12/21/16 12:57 12:57 12:57 WBC 16.9 H D RBC 3.08 L Hgb 7.9 L D Hct 25.7 L D MCV 83.5 MCH 25.8 MCHC 30.9 L RDW 16.9 H Plt Count 265 D MPV 8.4 Neutrophils % 81.8 D Lymphocytes % 6.8 L D Monocytes % 11.2 H Eosinophils % 0.1 D Basophils % 0.1 INR 1.53 H PTT (Actin FS) 61.0 H D Sodium 144 Potassium 3.8 Chloride 107 Carbon Dioxide 24 Anion Gap 13 BUN 40 H D Creatinine 1.2 D Creat Clearance w eGFR 57.27 Random Glucose 196 H D Lactic Acid Calcium 12.7 H D Total Bilirubin 0.6 AST 77 H D ALT 15 D Alkaline Phosphatase 192 H D Creatine Kinase 95 Troponin I 0.03 Total Protein 6.7 Albumin 1.5 L Urine Color Urine Appearance Urine pH Ur Specific [place] Urine Protein Urine Glucose (UA) Urine Ketones Urine Blood Urine Nitrite Urine Bilirubin Urine Urobilinogen Ur Leukocyte Esterase Urine RBC Urine WBC Urine Bacteria Hyaline Casts Urine Mucus Urine Yeast Blood Type Antibody Screen 12/21/16 12/21/16 12/21/16 12:57 12:57 14:15 WBC RBC Hgb Hct MCV MCH MCHC RDW Plt Count MPV Neutrophils % Lymphocytes % Monocytes % Eosinophils % Basophils % INR PTT (Actin FS) Sodium Potassium Chloride Carbon Dioxide Anion Gap BUN Creatinine Creat Clearance w eGFR Random Glucose Lactic Acid 6.5 H* Calcium Total Bilirubin AST ALT Alkaline Phosphatase Creatine Kinase Troponin I Total Protein Albumin Urine Color Red Urine Appearance Clear Urine pH 6.5 Ur Specific [place] 1.015 Urine Protein 2+ H Urine Glucose (UA) Negative Urine Ketones Trace H Urine Blood 3+ H Urine Nitrite Positive Urine Bilirubin 2+ H Urine Urobilinogen 1.0 Ur Leukocyte Esterase 2+ H Urine RBC 1558 Urine WBC 1295 Urine Bacteria Many Hyaline Casts 27 Urine Mucus Rare Urine Yeast Few Blood Type A POSITIVE Antibody Screen Negative 12/21/16 17:05 WBC RBC Hgb Hct MCV MCH MCHC RDW Plt Count MPV Neutrophils % Lymphocytes % Monocytes % Eosinophils % Basophils % INR PTT (Actin FS) Sodium Potassium Chloride Carbon Dioxide Anion Gap BUN Creatinine Creat Clearance w eGFR Random Glucose Lactic Acid 5.5 H* Calcium Total Bilirubin AST ALT Alkaline Phosphatase Creatine Kinase Troponin I Total Protein Albumin Urine Color Urine Appearance Urine pH Ur Specific [place] Urine Protein Urine Glucose (UA) Urine Ketones Urine Blood Urine Nitrite Urine Bilirubin Urine Urobilinogen Ur Leukocyte Esterase Urine RBC Urine WBC Urine Bacteria Hyaline Casts Urine Mucus Urine Yeast Blood Type Antibody Screen Active Medications Generic Name Dose Route Start Last Admin Trade Name Freq PRN Reason Stop Dose Admin Acetaminophen 650 mg 12/21/16 18:13 Tylenol - PO Q6H PRN FEVER OR PAIN Dabigatran 150 mg 12/21/16 22:00 Pradaxa - PO BID JADEN Donepezil HCl 5 mg 12/21/16 22:00 Aricept - PO HS JADEN Furosemide 20 mg 12/22/16 10:00 Lasix - PO DAILY JADEN Sodium Chloride 1,000 mls @ 125 mls/hr 12/21/16 17:01 12/21/16 17:01 Normal Saline - IV 12/22/16 01:00 125 mls/hr ASDIR ONE Administration Ceftriaxone Sodium 50 mls @ 100 mls/hr 12/22/16 10:00 Rocephin 1gm Ivpb (Pre-Docked) IVPB 12/22/16 11:59 DAILY JADEN Sodium Chloride 1,000 mls @ 75 mls/hr 12/21/16 18:15 Normal Saline - IV ASDIR JADEN Metoprolol Succinate 25 mg 12/22/16 10:00 Toprol Xl - PO DAILY JADEN Piperacillin Sod/Tazobactam Sod 3.375 gm 12/22/16 02:00 Zosyn 3.375gm Ivpb (Pre-Docked) IVPB Q8H-IV JADEN Sitagliptin Phosphate 50 mg 12/22/16 07:00 Januvia - PO DAILY@0700 JADEN Valsartan 40 mg 12/22/16 10:00 Diovan - PO DAILY JADEN Micro: Blood Cx x2, urine cx pending EKG: A-flutter w/ variable AV block. LAD w/ incomplete RBBB. CXR: (12/21) - Per radiologist read - A right-sided central line tip projects over the junction of the SVC and right atrium. Multiple nodular densities are again bilaterally. Cardiac silhouette is within normal limits. There is a tortuous aorta with calcifications consistent with atherosclerotic disease. There is an old right sixth rib fracture again noted. Non-Con CT Head (12/21) - No acute hemorrhages, midline shift or masses. Residual bilateral periventricular infarcts. ASSESSMENT/PLAN: Pt is an 86 yo man w/ pmh of DM, HTN, aFib (on Pradaxa/ASA), prostate Ca, multiple prior strokes, and dementia who presented to the ED with 3-4 days of extreme lethargy in setting of multiple weeks of declining energy levels and FTT. ED course notable for elevated WBC count (16.9) and elevated lactate of 6.5 , w/ UA suggestive of UTI. Additional labs notable for elevated BUN/Cr. PE notable for suprapubic pain on palpation +/- left flank pain and AMS. CXR unremarkable. Non-con CT head w/ no acute hemorrhage, masses or midline shift. Pt likely suffering from urosepsis w/ AMS secondary to infection. Plan for Zosyn for suspected Klebsiella ESBL UTI w/ ID consult in AM, trend lactate, IVFs , and f/u cultures/sensitivities. Monitor vitals for bradycardia/hypotension. Cardiology and ID consult in AM. #Neuro Trend MS #Cardiac A-flutter w/ variable conduction. Monitor bradycardia on telemetry. If symptomatic, given atropine per ACLS protocol Consider Echo in AM Cardiology consult in AM #Pulm 2L NC O2. Titrate to >94% #ID Started on Zosyn for suspected Klebsiella ESBL UTI. Follow up w/ ID in AM F/u blood cultures, urine cultures Trend lactate #Renal BUN/Cr (40/1.2) IVF NS 125/hr Monitor UOP #Heme Hold ASA/Pradaxa in setting of hematuria PM H/H notable for Hgb 6.9. Transfused 1u pRBCs. f/u AM CBC If Hgb <7, transfuse 1 unit pRBCs # Bucio placed 12/21. Gross hematuria noted. Urology consult if continual hematuria in AM #GI NPO Consult GI if Hgb continues downtrending #ppx SCD for DVT ppx #FEN Fluids: 125 NS IVF. Received 2L in ED. Eletrolytes: Daily CMPs, Monitor BUN/Cr Nutrition: NPO #Dispo: Will require ICU monitoring overnight. Shorty Vera, PGY1 Plan to be discussed w/ attending, Dr. Serrano Problem List - Problems (1) Sepsis Code(s): A41.9 - SEPSIS, UNSPECIFIED ORGANISM Qualifiers: Sepsis type: sepsis due to unspecified organism Qualified Code(s): A41.9 - Sepsis, unspecified organism (2) UTI (urinary tract infection) Code(s): N39.0 - URINARY TRACT INFECTION, SITE NOT SPECIFIED Qualifiers: Urinary tract infection type: site unspecified Hematuria presence: with hematuria Qualified Code(s): N39.0 - Urinary tract infection, site not specified; R31.9 - Hematuria, unspecified (3) Anemia Code(s): D64.9 - ANEMIA, UNSPECIFIED Qualifiers: Anemia type: iron deficiency Visit type - Emergency Visit Emergency Visit: No - New Patient This patient is new to me today: Yes Date on this admission: 12/21/16 - Critical Care Critical Care patient: Yes Total Critical Care Time (in minutes): 45 Critical Care Statement: The care of this patient involved high complexity decision making to prevent further life threatening deterioration of the patient 's condition and/or to evaluate & treat vital organ system(s) failure or risk of failure.
[2016-12-21] MEDS ORDERED: SODIUM CHLORIDE 1,000 ML IV STA (21:09)
--- NOTE | 2016-12-21 21:17 | CONSULT ---
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 Briefly, patient was recently admitted s/p fall then required 6 week [facility] stay. He has been bed bound since. Per family he has had decreased appetite and po intake for the last 2 weeks. PCP was notified and recommended ED visit. In the ED patient alerted AOx2. Labs significant for leukocytosis ( 16.9), lactic acidosis (6.5) and HERBIE (40/1.2). TLC was placed for difficult IV access. Patient received IV fluids x2 liters. ABX: zosyn. CXR: no focal infiltrates. NCHCT: old CVA no acute pathology. Patient transferred to ICU. In the ICU HR: 50s, BP 140/80s sat 94% on NC 2lpm. Bucio cath placed with notable hematuria. 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: CVA (2006,12/2009), Dementia Cardio/Vascular: Yes: AFIB (afl), CAD, HTN, Hyperlipdemia, [place] (NSTEMI with left ventricular dysfunction-2014) Renal/: Yes: BPH, Cancer (Prostate Ca), Other (cystoscopy-2015,bladder stones- 2015,) Musculoskeletal: Yes: Other (left hip fx) - Alcohol/Substance Use Hx Alcohol Use: No - Smoking History Smoking history: Never smoked Have you smoked in the past 12 months: No Aproximately how many cigarettes per day: 0 Home Medications - Allergies Allergies/Adverse Reactions: Allergies Allergy/AdvReac Type Severity Reaction Status Date / Time No Known Drug Allergies Allergy Verified 12/21/16 12:20 - Home Medications Home Medications: Ambulatory Orders Aspirin [ASA -] 81 mg PO DAILY 07/28/16 Cholecalciferol (Vitamin D3) [Vitamin D3 -] 1,000 units PO DAILY 07/28/16 Dabigatran Etexilate Mesylate [Pradaxa -] 150 mg PO BID 07/28/16 Donepezil HCl 5 mg PO DAILY 07/28/16 Ferrous Sulfate 325 mg PO BID 07/28/16 Furosemide 20 mg PO DAILY 07/28/16 Nitroglycerin 0.4 mg SL ASDIR 07/28/16 Bicalutamide [Casodex] 50 mg PO DAILY 11/19/16 Docusate Sodium 300 mg PO HS 11/19/16 Gabapentin 100 mg PO HS 11/19/16 Ipratropium/Albuterol Sulfate [Iprat-Albut 0.5-3(2.5) mg/3 ml] 3 ml IH PRN PRN 11/19/16 Valsartan [Diovan] 40 mg PO DAILY #30 tablet 11/21/16 Metoprolol Succinate [Toprol Xl -] 25 mg PO DAILY 12/21/16 Sitagliptin Phosphate [Januvia -] 100 mg PO DAILY@0700 12/21/16 Family Disease History - Family Disease History Family Disease History: Other: Father (CVA), Mother (CVA), Brother (CVA), Son ( HEALTHY), Daughter (X 2- HEALTHY) Review of Systems Unable to obtain ROS, reason: dementia Physical Exam Vital Signs: Vital Signs Temperature 97.6 F 12/21/16 17:30 Pulse Rate 72 12/21/16 17:30 Respiratory Rate 14 12/21/16 17:45 Blood Pressure 134/66 12/21/16 17:30 O2 Sat by Pulse Oximetry (%) 100 12/21/16 17:45 Current Medications Acetaminophen (Tylenol -) 650 mg PO Q6H PRN PRN Reason: FEVER OR PAIN Dabigatran (Pradaxa -) 150 mg PO BID JADEN Donepezil HCl (Aricept -) 5 mg PO HS JADEN Furosemide (Lasix -) 20 mg PO DAILY JADEN Sodium Chloride (Normal Saline -) 1,000 mls @ 125 mls/hr IV ASDIR ONE Stop: 12/22/16 01:00 Last Admin: 12/21/16 17:01 Dose: 125 mls/hr Ceftriaxone Sodium (Rocephin 1gm Ivpb (Pre-Docked)) 50 mls @ 100 mls/hr IVPB DAILY JADEN Stop: 12/22/16 11:59 Sodium Chloride (Normal Saline -) 1,000 mls @ 75 mls/hr IV ASDIR JADEN Last Admin: 12/21/16 19:00 Dose: 75 mls/hr Sodium Chloride (Normal Saline -) 1,000 mls @ 1,000 mls/hr IV ASDIR STA Stop: 12/21/16 22:08 Metoprolol Succinate (Toprol Xl -) 25 mg PO DAILY JADEN Piperacillin Sod/Tazobactam Sod (Zosyn 3.375gm Ivpb (Pre-Docked)) 3.375 gm IVPB Q8H-IV JADEN Last Admin: 12/21/16 21:21 Dose: 3.375 gm Piperacillin Sod/Tazobactam Sod (Zosyn 3.375gm Ivpb (Pre-Docked)) 3.375 gm IVPB ONCE ONE Stop: 12/21/16 21:31 Sitagliptin Phosphate (Januvia -) 50 mg PO DAILY@0700 JADEN Valsartan (Diovan -) 40 mg PO DAILY JADEN Constitutional: Yes: Thin Eyes: Yes: PERRL HENT: Yes: Other (mucus membrains dry) Cardiovascular: Yes: Bradycardia, S1, S2 Respiratory: Yes: Diminished Gastrointestinal: Yes: Normal Bowel Sounds, Soft Renal/: Yes: Bucio Present, Hematuria Edema: No Neurological: Yes: Other (AOx2: person, hospital) Labs: CBCD WBC 16.9 K/mm3 (4.0-10.0) H D 12/21/16 12:57 RBC 3.08 M/mm3 (4.00-5.60) L 12/21/16 12:57 Hgb 7.9 GM/dL (11.7-16.9) L D 12/21/16 12:57 Hct 25.7 % (35.4-49) L D 12/21/16 12:57 MCV 83.5 fl (80-96) 12/21/16 12:57 MCHC 30.9 g/dl (32.0-35.9) L 12/21/16 12:57 RDW 16.9 % (11.9-15.9) H 12/21/16 12:57 Plt Count 265 K/MM3 (134-434) D 12/21/16 12:57 MPV 8.4 fl (7.5-11.1) 12/21/16 12:57 CMP Sodium 146 mmol/L (136-145) H 12/21/16 19:45 Potassium 3.4 mmol/L (3.5-5.1) L 12/21/16 19:45 Chloride 112 mmol/L (98-107) H 12/21/16 19:45 Carbon Dioxide 24 mmol/L (21-32) 12/21/16 12:57 Anion Gap 13 (8-16) 12/21/16 12:57 BUN 40 mg/dL (7-18) H D 12/21/16 12:57 Creatinine 1.2 mg/dL (0.7-1.3) D 12/21/16 12:57 Creat Clearance w eGFR 57.27 (>60) 12/21/16 12:57 Random Glucose 196 mg/dL (74-106) H D 12/21/16 12:57 Calcium 12.7 mg/dL (8.5-10.1) H D 12/21/16 12:57 Total Bilirubin 0.6 mg/dL (0.2-1.0) 12/21/16 12:57 AST 77 U/L (15-37) H D 12/21/16 12:57 ALT 15 U/L (12-78) D 12/21/16 12:57 Alkaline Phosphatase 192 U/L (45-117) H D 12/21/16 12:57 Total Protein 6.7 g/dl (6.4-8.2) 12/21/16 12:57 Albumin 1.5 g/dl (3.4-5.0) L 12/21/16 12:57 CARDIAC ENZYMES Creatine Kinase 95 IU/L (39-308) 12/21/16 12:57 Troponin I 0.03 ng/ml (0.00-0.05) 12/21/16 12:57 Urine Test Results Urine Color Red 12/21/16 14:15 Urine Appearance Clear 12/21/16 14:15 Urine pH 6.5 (5.0-8.0) 12/21/16 14:15 Ur Specific [place] 1.015 (1.005-1.025) 12/21/16 14:15 Urine Protein 2+ (NEGATIVE) H 12/21/16 14:15 Urine Glucose (UA) Negative (NEGATIVE) 12/21/16 14:15 Urine Ketones Trace (NEGATIVE) H 12/21/16 14:15 Urine Blood 3+ (NEGATIVE) H 12/21/16 14:15 Urine Nitrite Positive (NEGATIVE) 12/21/16 14:15 Urine Bilirubin 2+ (NEGATIVE) H 12/21/16 14:15 Ur Leukocyte Esterase 2+ (NEGATIVE) H 12/21/16 14:15 Urine RBC 1558 /hpf (0-3) 12/21/16 14:15 Urine WBC 1295 /hpf (3-5) 12/21/16 14:15 Urine Bacteria Many /hpf (NONE SEEN) 12/21/16 14:15 Urine Mucus Rare 12/21/16 14:15 Laboratory Tests 12/21/16 12/21/16 12:57 17:05 Lactic Acid 6.5 H* 5.5 H* Imaging - Results Chest X-ray: Report Reviewed, Image Reviewed Assessment/Plan All Active Problems Sepsis (Acute) UTI (urinary tract infection) (Acute) Afib (Acute) Anemia (Acute) Hematuria (Acute) a/p: 86 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
[2016-12-21] MEDS: PIPERACILLIN/TAZOB 3.375 GM/50 ML PRE-DOCKED IVPB SCH (21:21)
[2016-12-21] MEDS ORDERED: PIPERACILLIN/TAZOB 3.375 GM/50 ML PRE-DOCKED IVPB ONE (21:30)
[2016-12-21 21:31] LABS: ALBUMIN 1.3 g/dl (3.4-5.0); ANION GAP 13 (8-16); BILIRUBIN,TOTAL 0.4 mg/dL (0.2-1.0); CALCIUM 11.8 mg/dL (8.5-10.1); CO2 22 mmol/L (21-32); CREATININE 1.1 mg/dL (0.7-1.3); GLUCOSE,RANDOM 189 mg/dL (74-106); SGOT/AST 68 U/L (15-37); SGPT/ALT 15 U/L (12-78)
[2016-12-21 21:32] LABS: ALK PHOS 167 U/L (45-117)
[2016-12-21] MEDS ORDERED: HEPARIN NA (PORCINE) 5,000 UNITS/ML 1ML VIAL SQ SCH (22:00)
[2016-12-21] MEDS: DONEPEZIL HCL 5 MG TABLET (FP) PO SCH (22:46)
[2016-12-22] MEDS: PIPERACILLIN/TAZOB 3.375 GM/50 ML PRE-DOCKED IVPB SCH ×3 (00:59→22:03)
[2016-12-22 05:50] LABS: EOSINOPHIL 0.1 % (0-4.5); MCH 26.8 pg (25.7-33.7); MEAN CELL VOLUME 83.8 fl (80-96); MEAN PLT VOLUME 8.7 fl (7.5-11.1); NEUTROPHILS 82.2 % (42.8-82.8); PLATELET COUNT 220 K/MM3 (134-434); RDW 16.5 % (11.9-15.9); WHITE BLOOD COUNT 13.4 K/mm3 (4.0-10.0)
[2016-12-22] MEDS ORDERED: D5-NS + 20 MEQ KCL - 1,000 ML IV SCH (06:00)
[2016-12-22] MEDS: sitaGLIPtin PHOSPHATE 50 MG TABLET PO SCH (07:28)
[2016-12-22 07:32] LABS: ALBUMIN 1.2 g/dl (3.4-5.0); ANION GAP 10 (8-16); BILIRUBIN,TOTAL 1.2 mg/dL (0.2-1.0); CALCIUM 11.5 mg/dL (8.5-10.1); CO2 23 mmol/L (21-32); GLUCOSE,RANDOM 124 mg/dL (74-106); SGOT/AST 60 U/L (15-37); SGPT/ALT 13 U/L (12-78); TOT PROT 5.5 g/dl (6.4-8.2)
[2016-12-22 07:33] LABS: ALK PHOS 141 U/L (45-117)
[2016-12-22] MEDS ORDERED: POTASSIUM CHLORIDE TABS 20 MEQ TABLET.ER (FP) PO ONE (09:00)
[2016-12-22] MEDS: DABIGATRAN ETEXILATE MESYLATE 150 MG CAPSULE PO SCH ×2 (09:17→21:50)
[2016-12-22] MEDS: METOPROLOL SUCCINATE 25 MG TAB.SR.24H (FP) PO SCH (09:18)
[2016-12-22] MEDS: POTASSIUM CHLORIDE ORAL LIQUID 20 MEQ/15 ML PO ONE ×2 (09:19→14:21)
[2016-12-22] MEDS ORDERED: PT OWN MED DRAWER 7, Y5N ONE ×2 (09:22→13:56)
[2016-12-22] MEDS: VALSARTAN 40 MG TABLET (FP) PO SCH (09:29)
[2016-12-22] MEDS ORDERED: SODIUM CHLORIDE 1,000 ML IV SCH (09:30)
[2016-12-22] MEDS ORDERED: FUROSEMIDE 20 MG TABLET (FP) PO SCH (10:00)
[2016-12-22] MEDS ORDERED: CEFTRIAXONE 50 ML IVPB SCH (10:00)
[2016-12-22] MEDS ORDERED: SODIUM CHLORIDE 0.45% 1,000 ML IV SCH (12:00)
--- NOTE | 2016-12-22 13:10 | PN ---
Teaching Attending Note Name of Resident: Von Felder ATTENDING PHYSICIAN STATEMENT I saw and evaluated the patient. I reviewed the resident's note and discussed the case with the resident. I agree with the resident's findings and plan as documented. SUBJECTIVE: Patient seen and examined in the ICU. Lethargic but arousable. He denies CP or SOB. No pressors. Still with hematuria. Intake & Output 12/19/16 12/20/16 12/21/16 12/22/16 23:59 23:59 23:59 23:59 Intake Total 1450 Output Total 100 450 Balance -100 1000 Weight 165 lb Last Vital Signs Temp Pulse Resp BP Pulse Ox 97 F L 56 L 16 146/52 99 12/22/16 06:00 12/22/16 09:52 12/22/16 06:00 12/22/16 06:00 12/22/16 09:52 Active Medications Acetaminophen (Tylenol -) 650 mg PO Q6H PRN PRN Reason: FEVER OR PAIN Dabigatran (Pradaxa -) 150 mg PO BID [facility] Last Admin: 12/22/16 09:17 Dose: Not Given Donepezil HCl (Aricept -) 5 mg PO HS [facility] Last Admin: 12/21/16 22:46 Dose: Not Given Sodium Chloride (1/2 Normal Saline) 1,000 mls @ 75 mls/hr IV ASDIR [facility] Metoprolol Succinate (Toprol Xl -) 25 mg PO DAILY [facility] Last Admin: 12/22/16 09:18 Dose: Not Given Piperacillin Sod/Tazobactam Sod (Zosyn 3.375gm Ivpb (Pre-Docked)) 3.375 gm IVPB Q8H-IV [facility] Last Admin: 12/22/16 09:16 Dose: 3.375 gm Sitagliptin Phosphate (Januvia -) 50 mg PO DAILY@0700 [facility] Last Admin: 12/22/16 07:28 Dose: 50 mg Valsartan (Diovan -) 40 mg PO DAILY [facility] Last Admin: 12/22/16 09:29 Dose: 40 mg Constitutional: Yes: Thin, mildly confused Eyes: Yes: PERRL HENT: Yes: mucus membranes dry Cardiovascular: Yes: Bradycardia, S1, S2 Respiratory: Yes: Diminished Gastrointestinal: Yes: Normal Bowel Sounds, Soft Renal/: Yes: Bucio Present, Hematuria Edema: No Neurological: Yes: Other (AOx2: person, hospital) Labs: Laboratory Results - last 24 hr 12/21/16 12/21/16 12/21/16 12:57 12:57 12:57 WBC RBC Hgb Hct MCV MCH MCHC RDW Plt Count MPV Neutrophils % Lymphocytes % Monocytes % Eosinophils % Basophils % INR 1.53 H PTT (Actin FS) 61.0 H D Sodium 144 Potassium 3.8 Chloride 107 Carbon Dioxide 24 Anion Gap 13 BUN 40 H D Creatinine 1.2 D Creat Clearance w eGFR 57.27 POC Glucometer Random Glucose 196 H D Lactic Acid 6.5 H* Calcium 12.7 H D Total Bilirubin 0.6 AST 77 H D ALT 15 D Alkaline Phosphatase 192 H D Creatine Kinase 95 Troponin I 0.03 Total Protein 6.7 Albumin 1.5 L Urine Color Urine Appearance Urine pH Ur Specific [place] Urine Protein Urine Glucose (UA) Urine Ketones Urine Blood Urine Nitrite Urine Bilirubin Urine Urobilinogen Ur Leukocyte Esterase Urine RBC Urine WBC Urine Bacteria Hyaline Casts Urine Mucus Urine Yeast Stool Occult Blood Blood Type Antibody Screen Crossmatch 12/21/16 12/21/16 12/21/16 12:57 14:15 17:05 WBC RBC Hgb Hct MCV MCH MCHC RDW Plt Count MPV Neutrophils % Lymphocytes % Monocytes % Eosinophils % Basophils % INR PTT (Actin FS) Sodium Potassium Chloride Carbon Dioxide Anion Gap BUN Creatinine Creat Clearance w eGFR POC Glucometer Random Glucose Lactic Acid 5.5 H* Calcium Total Bilirubin AST ALT Alkaline Phosphatase Creatine Kinase Troponin I Total Protein Albumin Urine Color Red Urine Appearance Clear Urine pH 6.5 Ur Specific [place] 1.015 Urine Protein 2+ H Urine Glucose (UA) Negative Urine Ketones Trace H Urine Blood 3+ H Urine Nitrite Positive Urine Bilirubin 2+ H Urine Urobilinogen 1.0 Ur Leukocyte Esterase 2+ H Urine RBC 1558 Urine WBC 1295 Urine Bacteria Many Hyaline Casts 27 Urine Mucus Rare Urine Yeast Few Stool Occult Blood Blood Type A POSITIVE Antibody Screen Negative Crossmatch 12/21/16 12/21/16 12/21/16 19:45 19:45 19:45 WBC 15.4 H RBC 2.57 L Hgb 6.9 L* D Hct 21.9 L MCV 85.0 MCH 26.8 MCHC 31.6 L RDW 17.2 H Plt Count 219 MPV 8.8 Neutrophils % Lymphocytes % Monocytes % Eosinophils % Basophils % INR PTT (Actin FS) Sodium 146 H Potassium 3.4 L Chloride 112 H Carbon Dioxide 22 Anion Gap 13 BUN 39 H Creatinine 1.1 Creat Clearance w eGFR > 60 POC Glucometer Random Glucose 189 H Lactic Acid 5.4 H* Calcium 11.8 H Total Bilirubin 0.4 D AST 68 H ALT 15 Alkaline Phosphatase 167 H Creatine Kinase Troponin I Total Protein 6.0 L Albumin 1.3 L Urine Color Urine Appearance Urine pH Ur Specific [place] Urine Protein Urine Glucose (UA) Urine Ketones Urine Blood Urine Nitrite Urine Bilirubin Urine Urobilinogen Ur Leukocyte Esterase Urine RBC Urine WBC Urine Bacteria Hyaline Casts Urine Mucus Urine Yeast Stool Occult Blood Blood Type Antibody Screen Crossmatch 12/21/16 12/22/16 12/22/16 19:45 05:00 05:00 WBC 13.4 H RBC 2.88 L Hgb 7.7 L D Hct 24.1 L MCV 83.8 MCH 26.8 MCHC 32.0 RDW 16.5 H Plt Count 220 MPV 8.7 Neutrophils % 82.2 Lymphocytes % 6.6 L Monocytes % 11.1 H Eosinophils % 0.1 Basophils % 0.0 INR PTT (Actin FS) Sodium 149 H Potassium 3.4 L Chloride 116 H Carbon Dioxide 23 Anion Gap 10 BUN 38 H Creatinine 1.0 Creat Clearance w eGFR > 60 POC Glucometer Random Glucose 124 H D Lactic Acid Calcium 11.5 H Total Bilirubin 1.2 H D AST 60 H ALT 13 Alkaline Phosphatase 141 H Creatine Kinase Troponin I Total Protein 5.5 L Albumin 1.2 L Urine Color Urine Appearance Urine pH Ur Specific [place] Urine Protein Urine Glucose (UA) Urine Ketones Urine Blood Urine Nitrite Urine Bilirubin Urine Urobilinogen Ur Leukocyte Esterase Urine RBC Urine WBC Urine Bacteria Hyaline Casts Urine Mucus Urine Yeast Stool Occult Blood Blood Type A POSITIVE Antibody Screen Negative Crossmatch See Detail 12/22/16 12/22/16 12/22/16 05:00 07:36 09:45 WBC RBC Hgb Hct MCV MCH MCHC RDW Plt Count MPV Neutrophils % Lymphocytes % Monocytes % Eosinophils % Basophils % INR PTT (Actin FS) Sodium Potassium Chloride Carbon Dioxide Anion Gap BUN Creatinine Creat Clearance w eGFR POC Glucometer 149.35121 Random Glucose Lactic Acid 4.2 H* Calcium Total Bilirubin AST ALT Alkaline Phosphatase Creatine Kinase Troponin I Total Protein Albumin Urine Color Urine Appearance Urine pH Ur Specific [place] Urine Protein Urine Glucose (UA) Urine Ketones Urine Blood Urine Nitrite Urine Bilirubin Urine Urobilinogen Ur Leukocyte Esterase Urine RBC Urine WBC Urine Bacteria Hyaline Casts Urine Mucus Urine Yeast Stool Occult Blood Negative Blood Type Antibody Screen Crossmatch 12/22/16 11:45 WBC RBC Hgb Hct MCV MCH MCHC RDW Plt Count MPV Neutrophils % Lymphocytes % Monocytes % Eosinophils % Basophils % INR PTT (Actin FS) Sodium Potassium Chloride Carbon Dioxide Anion Gap BUN Creatinine Creat Clearance w eGFR POC Glucometer Random Glucose Lactic Acid 4.1 H* Calcium Total Bilirubin AST ALT Alkaline Phosphatase Creatine Kinase Troponin I Total Protein Albumin Urine Color Urine Appearance Urine pH Ur Specific [place] Urine Protein Urine Glucose (UA) Urine Ketones Urine Blood Urine Nitrite Urine Bilirubin Urine Urobilinogen Ur Leukocyte Esterase Urine RBC Urine WBC Urine Bacteria Hyaline Casts Urine Mucus Urine Yeast Stool Occult Blood Blood Type Antibody Screen Crossmatch Assessment/Plan Sepsis (Acute) UTI (urinary tract infection) (Acute) Afib (Acute) Anemia (Acute) Hematuria (Acute) ABX coverage Follow cultures IVF Trend lactate Pradaxa Follow H&H normal transfusion thresholds: HGB >7.0, plt >20 SCDs for DVT prophylaxis Tele monitoring given bradycardia Urology evaluation Dr Serrano Critical care time spent in reviewing chart, evaluating patient and formulating plan - 35 minutes.
--- NOTE | 2016-12-22 13:38 | PN ---
Progress Note, Physician History of Present Illness: awake - Current Medication List Current Medications: Active Medications Acetaminophen (Tylenol -) 650 mg PO Q6H PRN PRN Reason: FEVER OR PAIN Dabigatran (Pradaxa -) 150 mg PO BID [facility] Last Admin: 12/22/16 09:17 Dose: Not Given Donepezil HCl (Aricept -) 5 mg PO HS [facility] Last Admin: 12/21/16 22:46 Dose: Not Given Sodium Chloride (1/2 Normal Saline) 1,000 mls @ 75 mls/hr IV ASDIR [facility] Metoprolol Succinate (Toprol Xl -) 25 mg PO DAILY [facility] Last Admin: 12/22/16 09:18 Dose: Not Given Piperacillin Sod/Tazobactam Sod (Zosyn 3.375gm Ivpb (Pre-Docked)) 3.375 gm IVPB Q8H-IV [facility] Last Admin: 12/22/16 09:16 Dose: 3.375 gm Sitagliptin Phosphate (Januvia -) 50 mg PO DAILY@0700 [facility] Last Admin: 12/22/16 07:28 Dose: 50 mg Valsartan (Diovan -) 40 mg PO DAILY [facility] Last Admin: 12/22/16 09:29 Dose: 40 mg - Objective Vital Signs: Vital Signs Temperature 97 F L 12/22/16 06:00 Pulse Rate 56 L 12/22/16 09:52 Respiratory Rate 16 12/22/16 06:00 Blood Pressure 146/52 12/22/16 06:00 O2 Sat by Pulse Oximetry (%) 99 12/22/16 09:52 Constitutional: Yes: No Distress HENT: Yes: Atraumatic Neck: Yes: Supple Cardiovascular: Yes: Regular Rate and Rhythm Respiratory: Yes: Rhonchi Gastrointestinal: Yes: Normal Bowel Sounds Extremities: Yes: WNL Labs: CBC, BMP 12/22/16 05:00 12/22/16 05:00 INR, PTT INR 1.53 (0.82-1.09) H 12/21/16 12:57 Problem List - Problems (1) Sepsis Assessment/Plan: iv abx ivf bcx, ucx..seen id consult Code(s): A41.9 - SEPSIS, UNSPECIFIED ORGANISM Qualifiers: Sepsis type: sepsis due to unspecified organism Qualified Code(s): A41.9 - Sepsis, unspecified organism (2) UTI (urinary tract infection) Assessment/Plan: cxs gram negative bacilli Code(s): N39.0 - URINARY TRACT INFECTION, SITE NOT SPECIFIED Qualifiers: Urinary tract infection type: site unspecified Hematuria presence: with hematuria Qualified Code(s): N39.0 - Urinary tract infection, site not specified; R31.9 - Hematuria, unspecified (3) Afib Code(s): I48.91 - UNSPECIFIED ATRIAL FIBRILLATION Qualifiers: Atrial fibrillation type: chronic Qualified Code(s): I48.2 - Chronic atrial fibrillation (4) HTN (hypertension) Code(s): I10 - ESSENTIAL (PRIMARY) HYPERTENSION
--- NOTE | 2016-12-22 13:39 | PN ---
Physical Exam: SUBJECTIVE: Patient seen and examined Pt is an 86 yo man w/ pmh of DM, HTN, aFib (on Pradaxa/ASA), prostate Ca, multiple prior strokes, and dementia who presented to the ED with 3-4 days of extreme lethargy in setting of multiple weeks of declining energy levels. Leora was found to have sepsis due to uti for which he was started on zosyn. Patient was also found to have hpernatremia with increased serum chloride so patient was started on 1/2 ns. In morning patient denies of nausea, vomiting, diarrhoea, burninng micturation, dizziness. Larsen cath in situ which shows haematuria. ( could be due to ac) no episode of fever overnight. sr Na increased from 146 to 149 lactic acid trending down. Haemogobin 7.7, could have decreased from haemodilution or from haematuria, will also get occult blood. B/l pedal edema could be due to hypoalbunemia. OBJECTIVE: Vital Signs Period Temp Pulse Resp BP Sys/Malone Pulse Ox Last 24 Hr 97 F-97.7 F 46-76 13-18 95-154/52-67 99-100 GENERAL: The patient is awake, remember his name, and place. . HEAD: Normal with no signs of trauma. ENT: dry mucous membranes. NECK: Trachea midline, full range of motion, supple. LUNGS: Breath sounds equal, clear to auscultation bilaterally, no wheezes, no crackles, HEART:s1s2 normal. ABDOMEN: Soft, mild suprapubic tenderness present, normoactive bowel sounds, no guarding, no rebound, EXTREMITIES: 2+ pulses, warm, well-perfused, edema present SKIN: Warm, dry, Laboratory Results - last 24 hr 12/21/16 12/21/16 12/21/16 17:05 19:45 19:45 WBC 15.4 H RBC 2.57 L Hgb 6.9 L* D Hct 21.9 L MCV 85.0 MCH 26.8 MCHC 31.6 L RDW 17.2 H Plt Count 219 MPV 8.8 Neutrophils % Lymphocytes % Monocytes % Eosinophils % Basophils % Sodium 146 H Potassium 3.4 L Chloride 112 H Carbon Dioxide 22 Anion Gap 13 BUN 39 H Creatinine 1.1 Creat Clearance w eGFR > 60 POC Glucometer Random Glucose 189 H Lactic Acid 5.5 H* Calcium 11.8 H Total Bilirubin 0.4 D AST 68 H ALT 15 Alkaline Phosphatase 167 H Total Protein 6.0 L Albumin 1.3 L Stool Occult Blood Blood Type Antibody Screen Crossmatch 12/21/16 12/21/16 12/22/16 19:45 19:45 05:00 WBC 13.4 H RBC 2.88 L Hgb 7.7 L D Hct 24.1 L MCV 83.8 MCH 26.8 MCHC 32.0 RDW 16.5 H Plt Count 220 MPV 8.7 Neutrophils % 82.2 Lymphocytes % 6.6 L Monocytes % 11.1 H Eosinophils % 0.1 Basophils % 0.0 Sodium Potassium Chloride Carbon Dioxide Anion Gap BUN Creatinine Creat Clearance w eGFR POC Glucometer Random Glucose Lactic Acid 5.4 H* Calcium Total Bilirubin AST ALT Alkaline Phosphatase Total Protein Albumin Stool Occult Blood Blood Type A POSITIVE Antibody Screen Negative Crossmatch See Detail 12/22/16 12/22/16 12/22/16 05:00 05:00 07:36 WBC RBC Hgb Hct MCV MCH MCHC RDW Plt Count MPV Neutrophils % Lymphocytes % Monocytes % Eosinophils % Basophils % Sodium 149 H Potassium 3.4 L Chloride 116 H Carbon Dioxide 23 Anion Gap 10 BUN 38 H Creatinine 1.0 Creat Clearance w eGFR > 60 POC Glucometer 149.52235 Random Glucose 124 H D Lactic Acid 4.2 H* Calcium 11.5 H Total Bilirubin 1.2 H D AST 60 H ALT 13 Alkaline Phosphatase 141 H Total Protein 5.5 L Albumin 1.2 L Stool Occult Blood Blood Type Antibody Screen Crossmatch 12/22/16 12/22/16 09:45 11:45 WBC RBC Hgb Hct MCV MCH MCHC RDW Plt Count MPV Neutrophils % Lymphocytes % Monocytes % Eosinophils % Basophils % Sodium Potassium Chloride Carbon Dioxide Anion Gap BUN Creatinine Creat Clearance w eGFR POC Glucometer Random Glucose Lactic Acid 4.1 H* Calcium Total Bilirubin AST ALT Alkaline Phosphatase Total Protein Albumin Stool Occult Blood Negative Blood Type Antibody Screen Crossmatch Active Medications Generic Name Dose Route Start Last Admin Trade Name Freq PRN Reason Stop Dose Admin Acetaminophen 650 mg 12/21/16 18:13 Tylenol - PO Q6H PRN FEVER OR PAIN Dabigatran 150 mg 12/21/16 22:00 12/22/16 09:17 Pradaxa - PO Not Given BID [facility] Donepezil HCl 5 mg 12/21/16 22:00 12/21/16 22:46 Aricept - PO Not Given HS [facility] Sodium Chloride 1,000 mls @ 75 mls/hr 12/22/16 12:00 1/2 Normal Saline IV ASDIR [facility] Metoprolol Succinate 25 mg 12/22/16 10:00 12/22/16 09:18 Toprol Xl - PO Not Given DAILY [facility] Piperacillin Sod/Tazobactam Sod 3.375 gm 12/22/16 02:00 12/22/16 09:16 Zosyn 3.375gm Ivpb (Pre-Docked) IVPB 3.375 gm Q8H-IV [facility] Administration Sitagliptin Phosphate 50 mg 12/22/16 07:00 12/22/16 07:28 Januvia - PO 50 mg DAILY@0700 [facility] Administration Valsartan 40 mg 12/22/16 10:00 12/22/16 09:29 Diovan - PO 40 mg DAILY [facility] Administration ASSESSMENT/PLAN: Sepsis secondary to uti Continue with antibiotics. Trend lactic acid continue with IV fluid Moniot vitals. monitor intake and output. Follow urine culture. ( lactose fermenting gramnegative bacelli) Afib continue with ac metoprolol xl 25mg po telemonitoring, as patient has radha DM monitor blood sugar on januvia HTN controlled on meds valsartan 40mg po daily monitor blood pressure Hematuria larsen in situ. urology consult monitor haemoglobin could be due to ac Hypernatremia free water deficit 1.5L started on 1/2 ns as patient as high chloride level also. B/l lung nodules. CXR shows b/l pulmonary nodules, could be metastatic. Consider CT chest once stable. Leora had h/o prostate cancer Fluid: 1/2 ns electrolyte: hypernatremia, hypokalemia nutrition: soft diet Dvt pro: prodexa Gi pro: zantac Dispo: in Visit type - Emergency Visit Emergency Visit: Yes ED Registration Date: 12/21/16 Care time: The patient presented to the Emergency Department on the above date and was hospitalized for further evaluation of their emergent condition. - New Patient This patient is new to me today: Yes Date on this admission: 12/22/16 - Critical Care Critical Care patient: Yes Total Critical Care Time (in minutes): 45 Critical Care Statement: The care of this patient involved high complexity decision making to prevent further life threatening deterioration of the patient 's condition and/or to evaluate & treat vital organ system(s) failure or risk of failure.
--- NOTE | 2016-12-22 15:11 | CON.ID ---
Consult Consult Specialty:: infectious diseases Reason for Consultation:: uti,hematuria - History of Present Illness History of Present Illness: Mr. Anna is an 86 year old male with a significant past medical history of DM, HTN, afib, Prostate cancer, stroke x2, and dementia who is admitted to icu because of sepsis hematuria and hypotension patient has dementia no proper history available history taken from the charts according to the notes patient has been extreme lethargic and not doing well and when patient came here he was weak and had hematuria currently patient is awake but is not oriented nor he knows what is going on - Past Medical History [employer]: Yes: CVA (2006,12/2009), Dementia Cardio/Vascular: Yes: AFIB (aflutter), CAD, HTN, Hyperlipdemia, [place] (NSTEMI with left ventricular dysfunction-2014) Renal/: Yes: BPH, Cancer (Prostate Ca), Other (cystoscopy-2015,bladder stones- 2015,) Musculoskeletal: Yes: Other (left hip fx) - Alcohol/Substance Use Hx Alcohol Use: No - Smoking History Smoking history: Never smoked Have you smoked in the past 12 months: No Aproximately how many cigarettes per day: 0 Home Medications - Allergies Allergies/Adverse Reactions: Allergies Allergy/AdvReac Type Severity Reaction Status Date / Time No Known Drug Allergies Allergy Verified 12/21/16 12:20 - Home Medications Home Medications: Ambulatory Orders Aspirin [ASA -] 81 mg PO DAILY 07/28/16 Cholecalciferol (Vitamin D3) [Vitamin D3 -] 1,000 units PO DAILY 07/28/16 Dabigatran Etexilate Mesylate [Pradaxa -] 150 mg PO BID 07/28/16 Donepezil HCl 5 mg PO DAILY 07/28/16 Ferrous Sulfate 325 mg PO BID 07/28/16 Furosemide 20 mg PO DAILY 07/28/16 Nitroglycerin 0.4 mg SL ASDIR 07/28/16 Bicalutamide [Casodex] 50 mg PO DAILY 11/19/16 Docusate Sodium 300 mg PO HS 11/19/16 Gabapentin 100 mg PO HS 11/19/16 Ipratropium/Albuterol Sulfate [Iprat-Albut 0.5-3(2.5) mg/3 ml] 3 ml IH PRN PRN 11/19/16 Valsartan [Diovan] 40 mg PO DAILY #30 tablet 11/21/16 Metoprolol Succinate [Toprol Xl -] 25 mg PO DAILY 12/21/16 Sitagliptin Phosphate [Januvia -] 100 mg PO DAILY@0700 12/21/16 Family Disease History - Family Disease History Family Disease History: Other: Father (CVA), Mother (CVA), Brother (CVA), Son ( HEALTHY), Daughter (X 2- HEALTHY) Review of Systems Unable to obtain ROS, reason: unable to obtian Physical Exam Vital Signs: Vital Signs Temperature 97 F L 12/22/16 06:00 Pulse Rate 56 L 12/22/16 09:52 Respiratory Rate 16 12/22/16 06:00 Blood Pressure 146/52 12/22/16 06:00 O2 Sat by Pulse Oximetry (%) 99 12/22/16 09:52 Constitutional: Yes: Other (failure inna thrive) HENT: Yes: Atraumatic Cardiovascular: Yes: Regular Rate and Rhythm Respiratory: Yes: Regular, Poor Air Entry Gastrointestinal: Yes: Normal Bowel Sounds, Soft Renal/: Yes: Bucio Present (hematuria) Musculoskeletal: Yes: Other Extremities: Yes: Other Neurological: Yes: Other (dementia) Psychiatric: Yes: Alert, Other Labs: CBC, BMP 12/22/16 05:00 12/22/16 05:00 Imaging - Results Chest X-ray: Report Reviewed, Image Reviewed Cat Scan: Report Reviewed, Image Reviewed Assessment/Plan Problem List - Problems (1) Sepsis Code(s): A41.9 - SEPSIS, UNSPECIFIED ORGANISM Qualifiers: Sepsis type: sepsis due to unspecified organism Qualified Code(s): A41.9 - Sepsis, unspecified organism (2) UTI (urinary tract infection) Code(s): N39.0 - URINARY TRACT INFECTION, SITE NOT SPECIFIED Qualifiers: Urinary tract infection type: site unspecified Hematuria presence: with hematuria Qualified Code(s): N39.0 - Urinary tract infection, site not specified; R31.9 - Hematuria, unspecified (3) Afib Code(s): I48.91 - UNSPECIFIED ATRIAL FIBRILLATION Qualifiers: Atrial fibrillation type: chronic Qualified Code(s): I48.2 - Chronic atrial fibrillation (4) HTN (hypertension) Code(s): I10 - ESSENTIAL (PRIMARY) HYPERTENSION patient pretty critical plan close monitoring abx started hydration as appropriate rest mgmt as per icu primary team await for all cx report cc 45 min
[2016-12-22 17:26] LABS: MCH 26.7 pg (25.7-33.7); MCHC 31.9 g/dl (32.0-35.9); MEAN CELL VOLUME 83.5 fl (80-96); MEAN PLT VOLUME 8.5 fl (7.5-11.1); PLATELET COUNT 230 K/MM3 (134-434); RDW 16.5 % (11.9-15.9); WHITE BLOOD COUNT 17.7 K/mm3 (4.0-10.0)
[2016-12-22] MEDS: DONEPEZIL HCL 5 MG TABLET (FP) PO SCH (22:01)
[2016-12-22] MEDS: RANITIDINE HCL 150 MG TABLET (FP) PO SCH (22:01)
[2016-12-23] MEDS: PIPERACILLIN/TAZOB 3.375 GM/50 ML PRE-DOCKED IVPB SCH ×2 (02:00→09:37)
[2016-12-23 06:08] LABS: EOSINOPHIL 0.1 % (0-4.5); MCH 26.9 pg (25.7-33.7); MCHC 32.3 g/dl (32.0-35.9); MEAN CELL VOLUME 83.5 fl (80-96); MEAN PLT VOLUME 8.7 fl (7.5-11.1); NEUTROPHILS 84.2 % (42.8-82.8); PLATELET COUNT 229 K/MM3 (134-434); RDW 16.5 % (11.9-15.9); WHITE BLOOD COUNT 15.5 K/mm3 (4.0-10.0)
[2016-12-23] MEDS: sitaGLIPtin PHOSPHATE 50 MG TABLET PO SCH (06:23)
[2016-12-23 06:51] LABS: ANION GAP 10 (8-16); CALCIUM 12.4 mg/dL (8.5-10.1); CO2 23 mmol/L (21-32); CREATININE 1.2 mg/dL (0.7-1.3); GLUCOSE,RANDOM 177 mg/dL (74-106); MAGNESIUM 2.2 mg/dL (1.8-2.4); PHOSPHOROUS 2.1 mg/dL (2.5-4.9)
--- NOTE | 2016-12-23 09:24 | PN ---
Progress Note (short form) - Note Progress Note: Seen and examined in the ICU BP stable Afebrile Hgb stable Active Medications Acetaminophen (Tylenol -) 650 mg PO Q6H PRN PRN Reason: FEVER OR PAIN Dabigatran (Pradaxa -) 150 mg PO BID [facility] Last Admin: 12/22/16 21:50 Dose: 150 mg Donepezil HCl (Aricept -) 5 mg PO HS [facility] Last Admin: 12/22/16 22:01 Dose: 5 mg Sodium Chloride (1/2 Normal Saline) 1,000 mls @ 75 mls/hr IV ASDIR [facility] Last Admin: 12/22/16 14:22 Dose: 75 mls/hr Metoprolol Succinate (Toprol Xl -) 25 mg PO DAILY [facility] Last Admin: 12/22/16 09:18 Dose: Not Given Piperacillin Sod/Tazobactam Sod (Zosyn 3.375gm Ivpb (Pre-Docked)) 3.375 gm IVPB Q8H-IV [facility] Last Admin: 12/23/16 02:00 Dose: 3.375 gm Ranitidine HCl (Zantac -) 150 mg PO BID [facility] Last Admin: 12/22/16 22:01 Dose: 150 mg Sitagliptin Phosphate (Januvia -) 50 mg PO DAILY@0700 [facility] Last Admin: 12/23/16 06:23 Dose: 50 mg Valsartan (Diovan -) 40 mg PO DAILY [facility] Last Admin: 12/22/16 09:29 Dose: 40 mg Vital Signs Period Temp Pulse Resp BP Sys/Malone Pulse Ox Last 24 Hr 97 F-97.9 F 46-70 14-20 113-156/51-110 98-100 Intake & Output 12/20/16 12/21/16 12/22/16 12/23/16 23:59 23:59 23:59 23:59 Intake Total 3150 Output Total 100 1250 Balance -100 1900 Weight 74.843 kg Exam: Constitutional: Yes: Thin, mildly confused Eyes: Yes: PERRL HENT: Yes: mucus membranes dry Cardiovascular: Yes: Bradycardia, S1, S2 Respiratory: Yes: Diminished Gastrointestinal: Yes: Normal Bowel Sounds, Soft Renal/: Yes: Bucio Present, Hematuria Edema: No Neurological: Yes: Other (AOx2: person, hospital) CBCD WBC 15.5 K/mm3 (4.0-10.0) H 12/23/16 05:15 RBC 2.82 M/mm3 (4.00-5.60) L 12/23/16 05:15 Hgb 7.6 GM/dL (11.7-16.9) L 12/23/16 05:15 Hct 23.5 % (35.4-49) L 12/23/16 05:15 MCV 83.5 fl (80-96) 12/23/16 05:15 MCHC 32.3 g/dl (32.0-35.9) 12/23/16 05:15 RDW 16.5 % (11.9-15.9) H 12/23/16 05:15 Plt Count 229 K/MM3 (134-434) 12/23/16 05:15 MPV 8.7 fl (7.5-11.1) 12/23/16 05:15 CMP Sodium 149 mmol/L (136-145) H 12/23/16 05:15 Potassium 3.8 mmol/L (3.5-5.1) 12/23/16 05:15 Chloride 116 mmol/L (98-107) H 12/23/16 05:15 Carbon Dioxide 23 mmol/L (21-32) 12/23/16 05:15 Anion Gap 10 (8-16) 12/23/16 05:15 BUN 45 mg/dL (7-18) H 12/23/16 05:15 Creatinine 1.2 mg/dL (0.7-1.3) 12/23/16 05:15 Creat Clearance w eGFR > 60 (>60) 12/22/16 05:00 Random Glucose 177 mg/dL (74-106) H D 12/23/16 05:15 Calcium 12.4 mg/dL (8.5-10.1) H 12/23/16 05:15 Total Bilirubin 1.2 mg/dL (0.2-1.0) H D 12/22/16 05:00 AST 60 U/L (15-37) H 12/22/16 05:00 ALT 13 U/L (12-78) 12/22/16 05:00 Alkaline Phosphatase 141 U/L (45-117) H 12/22/16 05:00 Total Protein 5.5 g/dl (6.4-8.2) L 12/22/16 05:00 Albumin 1.2 g/dl (3.4-5.0) L 12/22/16 05:00 CARDIAC ENZYMES Creatine Kinase 95 IU/L (39-308) 12/21/16 12:57 Troponin I 0.03 ng/ml (0.00-0.05) 12/21/16 12:57 Assessment/Plan Sepsis (Acute) UTI (urinary tract infection) (Acute) Afib (Acute) Anemia (Acute) Hematuria (Acute) ABX coverage Follow cultures IVF: d5 1/2 NS given hyperNa Pradaxa per primary team Follow H&H normal transfusion thresholds: HGB >7.0, plt >20 SCDs for DVT prophylaxis Tele monitoring given bradycardia Urology evaluation Stable for floor transfer Deanne EDMONDSON Pulm/CCM CCT: 35m
[2016-12-23] MEDS ORDERED: PT OWN MED DRAWER 7, Y5N ONE (09:35)
[2016-12-23] MEDS: VALSARTAN 40 MG TABLET (FP) PO SCH (09:36)
[2016-12-23] MEDS: DABIGATRAN ETEXILATE MESYLATE 150 MG CAPSULE PO SCH (09:37)
[2016-12-23] MEDS: RANITIDINE HCL 150 MG TABLET (FP) PO SCH (09:37)
[2016-12-23] MEDS: METOPROLOL SUCCINATE 25 MG TAB.SR.24H (FP) PO SCH (09:37)
[2016-12-23 12:48] VITALS: TEMP 96.9
[2016-12-23 13:19] VITALS: BP 132/81; PULSE 72
[2016-12-23] MEDS ORDERED: EPINEPHrine/PF 1 MG/1 ML (1:1,000) AMPULE ONE (14:07)
--- NOTE | 2016-12-23 18:05 | DS ---
Physical Examination Vital Signs: Vital Signs Temperature 96.9 F L 12/23/16 12:48 Pulse Rate 72 12/23/16 13:19 Respiratory Rate 16 12/23/16 13:19 Blood Pressure 132/81 12/23/16 13:19 O2 Sat by Pulse Oximetry (%) 98 12/23/16 08:29 Labs: CBC, BMP 12/23/16 05:15 12/23/16 05:15 Discharge Summary Reason For Visit: UTI/SEPSIS Current Active Problems Sepsis (Acute) UTI (urinary tract infection) (Acute) - Instructions Referrals: STAFF,NOT ON [Primary Care Provider] - Disposition: - Home Medications Comprehensive Discharge Medication List: Ambulatory Orders Aspirin [ASA -] 81 mg PO DAILY 07/28/16 Cholecalciferol (Vitamin D3) [Vitamin D3 -] 1,000 units PO DAILY 07/28/16 Dabigatran Etexilate Mesylate [Pradaxa -] 150 mg PO BID 07/28/16 Donepezil HCl 5 mg PO DAILY 07/28/16 Ferrous Sulfate 325 mg PO BID 07/28/16 Furosemide 20 mg PO DAILY 07/28/16 Nitroglycerin 0.4 mg SL ASDIR 07/28/16 Bicalutamide [Casodex] 50 mg PO DAILY 11/19/16 Docusate Sodium 300 mg PO HS 11/19/16 Gabapentin 100 mg PO HS 11/19/16 Ipratropium/Albuterol Sulfate [Iprat-Albut 0.5-3(2.5) mg/3 ml] 3 ml IH PRN PRN 11/19/16 Valsartan [Diovan] 40 mg PO DAILY #30 tablet 11/21/16 Metoprolol Succinate [Toprol Xl -] 25 mg PO DAILY 12/21/16 Sitagliptin Phosphate [Januvia -] 100 mg PO DAILY@0700 12/21/[address] pritesh torres who ran the code also as she was hospitalist in house i filled out the certificate later
--- NOTE | 2016-12-23 21:16 | RAPID ---
Physical Examination Vital Signs: Vital Signs Temperature 96.9 F L 12/23/16 12:48 Pulse Rate 72 12/23/16 13:19 Respiratory Rate 16 12/23/16 13:19 Blood Pressure 132/81 12/23/16 13:19 O2 Sat by Pulse Oximetry (%) 98 12/23/16 08:29 Findings/Remarks: Code 99 was activated at 13:58. Arrived with compressions already initiated. Patient's rhythm was PEA. He was given a few rounds of meds but did not achieve ROSC. On exam the patient did not respond to verbal or physical stimuli and no spontaneous movement was observed. Absent heart and breath sounds for more than one minute. Absent peripheral pulses. Pupils were fixed and dilated and corneal reflex were absent. Patient pronounced at 14:12. Dr. Freitas was notified. Next of kin and family were also notified. Please see code sheet for further information. Labs: CBC, BMP 12/23/16 05:15 12/23/16 05:15
--- NOTE | 2016-12-24 12:19 | CONS ---
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 He was brought in the emergency room with worsening lethargy for the past several days. In the emergency room, he was found to have a temperature of 99.1, breath sounds were coarse, his abdomen was soft. Patient was diagnosed with sepsis due to a leukocytosis due to his anemia and elevated lactic acid greater than 6. Cultures of the urine and blood were taken and patient was commenced on ceftriaxone. Presently the patient is extremely lethargic. He has gross hematuria. He is not oriented to person, place, or time. He has been on multiple medications including aspirin, vitamin C, Pradaxa, donepezil, iron, Lasix, nitroglycerin 0.4 sublingual p.r.n., Casodex for his prostate cancer, Colace, Neurontin, albuterol sulfate, Diovan, Toprol XL, and Januvia. In the ICU, his temperature was 97, blood pressure 146/52. The patient's BUN was 38 and creatinine 1. Hemoglobin was 7.7 and hematocrit 24.1. Patient presently is in sepsis with hematuria and anemia. Would continue with present antibiotic coverage. Patient will need to undergo a cystoscopy, possible fulguration, when he becomes stable. On the following day, on December 23, 2016, came to examine patient at 3:30 p.m. Patient was coded and resuscitative protocol failed to revive him. Patient was declared at 3:30 p.m. on December 23, 2016. JACQUELYN TAVERAS M.D. [id number]
== END 2016-12-23 17:32 | disposition expired | DRG 871 ==
LOC: JER 12:06 → JERBED 15:55 → JICU 17:30
PROVIDERS: ADMIT Internal Medicine; ATTEND Internal Medicine
PROC: 05HM33Z Insertion of Infusion Device into Right Internal Jugular Vein, Percutaneous Approach (ICD-10-PCS; principal; 2016-12-21)
PROC: 30233N1 Transfusion of Nonautologous Red Blood Cells into Peripheral Vein, Percutaneous Approach (ICD-10-PCS; 2016-12-21)
PROC: 5A12012 Performance of Cardiac Output, Single, Manual (ICD-10-PCS; 2016-12-23)
DX: A41.9 Sepsis, unspecified organism (principal); G93.41 Metabolic encephalopathy; N39.0 Urinary tract infection, site not specified; I48.92 Unspecified atrial flutter; E87.0 Hyperosmolality and hypernatremia; Z68.1 Body mass index [BMI] 19.9 or less, adult; E11.9 Type 2 diabetes mellitus without complications; I10 Essential (primary) hypertension; I48.91 Unspecified atrial fibrillation; I25.2 Old myocardial infarction; F03.90 Unspecified dementia, unspecified severity, without behavioral disturbance, psychotic disturbance, mood disturbance, and anxiety; B96.1 Klebsiella pneumoniae [K. pneumoniae] as the cause of diseases classified elsewhere; D64.9 Anemia, unspecified; N40.0 Benign prostatic hyperplasia without lower urinary tract symptoms; E53.8 Deficiency of other specified B group vitamins; R31.0 Gross hematuria; R62.7 Adult failure to thrive; R91.8 Other nonspecific abnormal finding of lung field; E87.6 Hypokalemia; Z85.46 Personal history of malignant neoplasm of prostate; Z96.649 Presence of unspecified artificial hip joint; Z74.01 Bed confinement status; Z86.73 Personal history of transient ischemic attack (TIA), and cerebral infarction without residual deficits
CPT/HCPCS: 36415; 36430; 70450-TC; 71010-TC; 80048; 80053; 81003; 81015; 82272; 83605; 83735; 84100; 84484; 85025; 85027; 85610; 85730; 86850; 86900; 86901; 86922; 87040; 87086; 87186; 93005; 93010; 99285-25; P9038; P9058